=== PATIENT | female | born 1970 ===

== ENCOUNTER 2016-07-30 12:25 | Emergency (ER) | payer OTHER ==
[2016-07-30 12:37] VITALS: RESP 18; TEMP 98.3
--- NOTE | 2016-07-30 13:05 | ED PDOC ---
HPI: Hypertension/Hypotension Time Seen by Provider: 07/30/16 12:45 Chief Complaint (Nursing): High Blood Pressure Chief Complaint (Provider): High blood pressure History Per: Patient History/Exam Limitations: no limitations Onset/Duration Of Symptoms: Days (Today) Current Symptoms Are (Timing): Still Present Additional Complaint(s): Pt. went to the GI doctor for a follow up and refill on her meds. They found her pressure to be high so she was sent to the ED. Pt. states she has ran out of meds and was here for a refill. No meds for 2 days. Denies any chest pain, dyspnea, headaches, dizziness, palpitations, weakness, numbness, nausea. No symptoms and is feeling at baseline. Past Medical History Reviewed: Nursing Documentation, Vital Signs Vital Signs: Last Vital Signs Temp 98.3 F 07/30/16 12:32 Pulse 82 07/30/16 12:32 Resp 18 07/30/16 12:32 BP 184/98 H 07/30/16 12:32 Pulse Ox 98 07/30/16 12:32 - Medical History PMH: Anxiety, Asthma, Depression, Gastritis, HTN, Pancreatitis Denies: Alzheimer's Disease, Anemia, Arthritis, Atrial Fibrillation, Bipolar Disorder, Bronchitis, CAD, Cardia Arrhythmia, CHF, COPD, Crohn's Disease, Dementia, Diverticulitis, Emphysema, Fractures, Gall Bladder Disease, HIV, Hypercholesterolemia, Hyperthyroidism, Hypothyroidism, Kidney Stones, Migraine, Mitral Valve Prolapse, Multiple Sclerosis, Osteoporosis, Paranoia, Parkinson's Disease, Peripheral Edema, Pneumonia, Post Traumatic Stress Disorder, Pulmonary Embolism, Chronic Kidney Disease, Rheumatoid Arthritis, Schizophrenia, Seizures , Sickle Cell Disease, Sexually Transmitted Disease, Sleep Apnea, TIA Other PMH: Liver dz - Surgical History Surgical History: Endoscopy, Denies: Appendectomy, CABG, Carotid Endarterectomy, Cholecystectomy, Coronary Stent, Pacemaker, Tonsillectomy - Family History Family History: States: Unknown Family Hx - Social History Current smoker - smoking cessation education provided: No Alcohol: None Drugs: Denies - Immunization History Hx Tetanus Toxoid Vaccination: No Hx Influenza Vaccination: No Hx Pneumococcal Vaccination: No - Home Medications Home Medications: Ambulatory Orders Medication Instructions Recorded Furosemide [Lasix] 20 mg PO DAILY #14 tab 02/28/16 Spironolactone [Aldactone] 50 mg PO BID 04/05/16 Ferrous Sulfate [Feosol] 325 mg PO TID #90 tab 04/07/16 Furosemide [Lasix] 20 mg PO DAILY 5 Days 07/30/16 Propranolol [Inderal] 10 mg PO TID 5 Days 07/30/16 Spironolactone [Aldactone] 50 mg PO BID 5 Days 07/30/16 - Allergies Allergies/Adverse Reactions: Allergies Allergy/AdvReac Type Severity Reaction Status Date / Time No Known Allergies Allergy Verified 09/17/15 10:23 Review of Systems ROS Statement: Except As Marked, All Systems Reviewed And Found Negative Physical Exam - Reviewed Nursing Documentation Reviewed: Yes Vital Signs Reviewed: Yes - Physical Exam Appears: Positive for: Well, Non-toxic, No Acute Distress Head Exam: Positive for: ATRAUMATIC, NORMAL INSPECTION, NORMOCEPHALIC Skin: Positive for: Normal Color, Warm, DRY Eye Exam: Positive for: EOMI, Normal appearance, PERRL ENT: Positive for: Normal ENT Inspection Neck: Positive for: Normal, Painless ROM Cardiovascular/Chest: Positive for: Regular Rate, Rhythm Respiratory: Positive for: CNT, Normal Breath Sounds Gastrointestinal/Abdominal: Positive for: Normal Exam, Bowel Sounds, Soft. Negative for: Tenderness Back: Positive for: Normal Inspection. Negative for: L CVA Tenderness, R CVA Tenderness Extremity: Positive for: Normal ROM. Negative for: Tenderness, Pedal Edema Neurologic/Psych: Positive for: Alert, stock selector II-XII, Oriented. Negative for: Motor/Sensory Deficits - ECG O2 Sat by Pulse Oximetry: 98 Pulse Ox Interpretation: Normal - Progress ED Course And Treament: 1515: Stable. AAOx3. Pain free. Symptom free while in ED. Will rx meds for her refills and advised to fu with pcp. Spoke with Dr. Kay. Was sent to the ED for bp being high. No plan for admit. Ok with dc and fu. Disposition - Clinical Impression Clinical Impression: Hypertension - Patient ED Disposition Is Patient to be Admitted: No Counseled Patient/Family Regarding: Diagnosis, Need For Followup, Rx Given - Disposition Referrals: Faye Gray MD [Primary Care Provider] - 08/02/16 Disposition: Routine/Home Disposition Time: 15:18 Condition: STABLE Additional Instructions: See your doctor for all prescriptions for a longer duration. Return if not better in 3 days. Prescriptions: Furosemide [Lasix] 20 mg PO DAILY 5 Days Propranolol [Inderal] 10 mg PO TID 5 Days Spironolactone [Aldactone] 50 mg PO BID 5 Days Instructions: Hypertension (ED)
[2016-07-30 16:02] VITALS: BP 138/80; PULSE 65; O2SAT 100
--- NOTE | 2016-07-31 11:36 | CARD ---
APPROVED REPORT EKG Measurement Heart [id number] VT [id number] [id number] <Conclusion> Normal sinus rhythm Poor R wave progression (V2 to V3) Abnormal ECG
== END 2016-07-30 16:01 | disposition home or self-care (01) ==
LOC: H.ER 12:25
DX: I10 Essential (primary) hypertension (principal); F41.9 Anxiety disorder, unspecified; F32.9 Major depressive disorder, single episode, unspecified; J45.909 Unspecified asthma, uncomplicated; K85.90 Acute pancreatitis without necrosis or infection, unspecified

== ENCOUNTER 2016-11-01 15:26 | Inpatient (IN) | payer MEDICAID, SELFPAY ==
[2016-11-01] MEDS ORDERED: Alum-Mag Hydrox-Simethicone Susp (30 mL) PO ONE (16:32)
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
[2016-11-01 17:37] LABS: EOS % 0.4 % (0.0-4.0); HEMOGLOBIN 11.7 g/dL (12.0-16.0); LYMPH # 1.6 K/uL (1.0-4.3); LYMPH % 31.4 % (20.0-40.0); MEAN CORPUSCULAR HEMOGLOBIN 26.5 pg (27.0-31.0); MEAN CORPUSCULAR HGB CONC 32.8 g/dL (33.0-37.0); MONO # 0.5 K/uL (0.0-0.8); MONO % 9.1 % (0.0-10.0); NEUT % 58.1 % (50.0-75.0); NRBC % 0.1 % (0.0-0.0); RBC 4.42 Mil/uL (3.80-5.20); SQUAMOUS EPITHIAL 10 /hpf (0-5); URINE BACTERIA RARE (<OCC); URINE BILIRUBIN NEGATIVE (NEGATIVE); URINE BLOOD NEGATIVE (NEGATIVE); URINE CLARITY CLOUDY (Clear); URINE COLOR YELLOW (YELLOW); URINE GLUCOSE (UA) NEG (Normal); URINE LEUKOCYTE ESTERASE NEG Leu/uL (Negative); URINE NITRATE POSITIVE (NEGATIVE); URINE PROTEIN 30 mg/dL (NEGATIVE); URINE UROBILINOGEN 0.2-1.0 mg/dL (0.2-1.0); WHITE BLOOD COUNT 5.1 K/uL (4.8-10.8)
[2016-11-01 17:47] LABS: ALBUMIN 3.9 g/dL (3.5-5.0); ALT/SGPT 45 U/L (9-52); AST/SGOT 44 U/L (14-36); BLOOD UREA NITROGEN 6 mg/dl (7-17); CALCIUM 8.1 mg/dL (8.4-10.2); GFR AFRICAN-AMERICAN > 60; GFR NON-AFRICAN AMERICAN > 60; LIPASE 221 U/L (23-300)
[2016-11-01 17:50] LABS: BARBITURATES, UR NEGATIVE (NEGATIVE); BENZODIAZEPINES, UR NEGATIVE (NEGATIVE); OPIATES, UR NEGATIVE (NEGATIVE); PHENCYCLIDINE, UR NEGATIVE (NEGATIVE)
[2016-11-01] MEDS ORDERED: Alum-Mag Hydrox-Simethicone Susp (30 mL) ONE (18:18)
--- NOTE | 2016-11-01 18:30 | CT ---
PROCEDURE: CT HEAD WITHOUT CONTRAST. HISTORY: trauma; hx of subdural hematoma COMPARISON: Noncontrast head CT performed 04/06/16 TECHNIQUE: Axial computed tomography images were obtained through the head/brain without intravenous contrast. Radiation dose: Total exam DLP = 848.42 mGy-cm. This CT exam was performed using one or more of the following dose reduction techniques: Automated exposure control, adjustment of the mA and/or kV according to patient size, and/or use of iterative reconstruction technique. FINDINGS: HEMORRHAGE: No intracranial hemorrhage. BRAIN: No mass effect or edema. The godoy-white matter differentiation appears intact. Please note that MRI with diffusion imaging is more sensitive in the detection of acute ischemic event. VENTRICLES: No hydrocephalus. CALVARIUM: Unremarkable. PARANASAL SINUSES: Unremarkable as visualized. No significant inflammatory changes. MASTOID AIR CELLS: Unremarkable as visualized. No inflammatory changes. OTHER FINDINGS: None. IMPRESSION: No acute intracranial pathology identified.
--- NOTE | 2016-11-01 20:06 | US ---
EXAM: US Abdomen Complete CLINICAL HISTORY: 46 years old, female; Pain; Abdominal pain; Epigastric; Additional info: Epigastric pain TECHNIQUE: Real-time ultrasound of the abdomen (complete) with image documentation. EXAM DATE/TIME: 11/01/2016 6:52 PM COMPARISON: No relevant prior studies available. FINDINGS: Gallbladder: Contains multiple shadowing, layering gallstones. The gallbladder wall measures 3.4 mm in thickness (normal less than 3 mm). No evidence of pericholecystic fluid. Reportedly negative sonographic Allen's sign.Gallbladder does not appear significantly dilated. Common bile duct: Measures 6.3 mm in diameter (normal less than 6 mm). Liver: Has a nodular surface contour, suspicious for cirrhotic change. Parenchymal echogenicity appears heterogeneous, with no definite focal lesions seen. Normal flow seen in the main portal vein on color and Doppler imaging. Normal in size, measuring 14 cm in length. Pancreas: Poorly seen due to gas. Right kidney: Within normal limits in appearance. Measures 11.5 cm in length. No evidence of hydronephrosis. Left kidney: Within normal limits in appearance. Measures 10.9 cm in length. No evidence of hydronephrosis. Spleen: Mildly enlarged, measuring 14 cm in length. Aorta: Imaged portions appear unremarkable. IVC: Imaged portions appear unremarkable. IMPRESSION: Gallstones, associated with minimal gallbladder wall thickening, 3.4 mm. This wall thickening could be secondary to chronic cholecystitis or to underlying chronic liver disease, although early acute cholecystitis is difficult to exclude. No evidence of pericholecystic fluid or a positive sonographic Allen's sign. Common bile duct is slightly dilated, 6.3 mm, caused not identified. Recommend correlation with LFTs for laboratory evidence of biliary obstruction. Cirrhotic appearance of the liver. Mild splenomegaly. See above for remaining findings.
[2016-11-01] MEDS ORDERED: Tmp-Smz 800 mg-160 mg DS Tab PO STA (22:29)
[2016-11-02] MEDS ORDERED: DiphenhydrAMINE 50 mg/ml Inj IM PRN (01:03)
[2016-11-02] MEDS ORDERED: Alum-Mag Hydrox-Simethicone Susp (30 mL) PO PRN (01:03)
[2016-11-02] MEDS ORDERED: Magnesium Hydroxide Susp 30 ml UD PO PRN (01:03)
[2016-11-02 01:19] VITALS: O2SAT 99
[2016-11-02 07:56] LABS: HDL CHOLESTEROL 88 MG/DL (30-70)
[2016-11-02 08:08] LABS: LDL CHOLESTEROL 61 mg/dL (0-129)
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
[2016-11-02] MEDS: Multivitamin With Minerals Tab PO SCH (09:05)
--- NOTE | 2016-11-02 10:17 | RAD ---
HISTORY: clearance COMPARISON: 02/27/2016. FINDINGS: LUNGS: No active pulmonary disease. PLEURA: No significant pleural effusion identified, no pneumothorax apparent. CARDIOVASCULAR: Normal. OSSEOUS STRUCTURES: No significant abnormalities. VISUALIZED UPPER ABDOMEN: Normal. OTHER FINDINGS: None. IMPRESSION: No active disease. No significant interval change compared to the prior examination(s). No preliminary report provided by emergency department personnel.
[2016-11-02 10:58] LABS: SALICYLATE < 1.0 mg/dl
[2016-11-02 10:59] LABS: ACETAMINOPHEN < 10.0 ug/ml (10.0-30.0)
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
[2016-11-02] MEDS: Tmp-Smz 800 mg-160 mg DS Tab PO SCH (21:18)
[2016-11-03 08:21] LABS: HDL CHOLESTEROL 93 MG/DL (30-70)
[2016-11-03 08:24] LABS: ALT/SGPT 43 U/L (9-52); AST/SGOT 53 U/L (14-36); BLOOD UREA NITROGEN 11 mg/dl (7-17); CALCIUM 9.4 mg/dL (8.4-10.2); GFR AFRICAN-AMERICAN > 60; GFR NON-AFRICAN AMERICAN > 60
[2016-11-03 08:32] LABS: LDL CHOLESTEROL 74 mg/dL (0-129)
[2016-11-03] MEDS: Tmp-Smz 800 mg-160 mg DS Tab PO SCH ×2 (09:24→21:15)
[2016-11-03] MEDS: Multivitamin With Minerals Tab PO SCH (09:38)
--- NOTE | 2016-11-03 13:39 | PCM.PYCHPN ---
Psychiatric Progress Note - Psychiatric Progress Note Patient seen today, length of contact: in treatment team Patient Chief Complaint: i am ok Problems Identified/Issues Discussed: pt still minimizing her alcohol use. she states she is depressed. denies withdrawal symptoms. denies feeling sedated with meds. Medication Change: Yes (taper ativan) Medical Record Reviewed: Yes Mental Status Examination - Cognitive Function Orientation: Person, Place, Situation, Time Memory: Intact Attention: WNL Concentration: WNL Association: WNL Fund of Knowledge: [facility] Decription of patient's judgement and insights: fair - Mood Mood: Depressed, Anxious - Affect Affect: Broad - Speech Speech: Appropriate - Formal Thought Process Formal Thought Process: No Impairment - Suicidal Ideation Suicidal Ideation: No - Homicidal Ideation Homicidal Ideation: No Goal/Treatment Plan - Goal/Treatment Plan Need for Continued Stay: Remain at risks for inpatient hospitalization, Discharge may exacerbated symptoms Progress Toward Problem(s) and Goals/Treatment Plan: alcohol dependence major depression continue current treatment taper ativan dc tuesday/tuesday Estimated Date of D/C: 11/07/16
--- NOTE | 2016-11-03 18:25 | CARD ---
APPROVED REPORT EKG Measurement Heart [id number] <Conclusion> Sinus tachycardia Otherwise normal ECG
[2016-11-04] MEDS: Multivitamin With Minerals Tab PO SCH ×3 (08:50→08:56)
--- NOTE | 2016-11-04 11:17 | PCM.PYCHPN ---
Psychiatric Progress Note - Psychiatric Progress Note Patient seen today, length of contact: discussed with team Patient Chief Complaint: i am ok Problems Identified/Issues Discussed: pt denies withdrawal symptoms. remains depressed and isolative. she denies medication side effects. Medication Change: Yes (taper ativan) Medical Record Reviewed: Yes Mental Status Examination - Cognitive Function Orientation: Person, Place, Situation, Time Memory: Intact Attention: WNL Concentration: WNL Association: WNL Fund of Knowledge: WNL Decription of patient's judgement and insights: fair - Mood Mood: Depressed, Anxious - Affect Affect: Broad - Speech Speech: Appropriate - Formal Thought Process Formal Thought Process: No Impairment - Suicidal Ideation Suicidal Ideation: No - Homicidal Ideation Homicidal Ideation: No Goal/Treatment Plan - Goal/Treatment Plan Need for Continued Stay: Remain at risks for inpatient hospitalization, Discharge may exacerbated symptoms Progress Toward Problem(s) and Goals/Treatment Plan: alcohol dependence major depression continue current treatment taper ativan- lower to 0.5mg bid family medicine covering medical problems- pt with elevated bp/hr is wnl dc tuesday/tuesday Estimated Date of D/C: 11/07/16
--- NOTE | 2016-11-05 08:35 | CP.PCM.PN ---
Subjective - Date & Time of Evaluation Date of Evaluation: 11/05/16 Time of Evaluation: 08:15 - Subjective Subjective: Pt. seen at bedside with no overnight events and no complaints. Pt. is tolerating PO diet without nausea vomiting. Pt. denies abdominal pain. Pt. also denies any dysuria, fever, or chills. Objective - Vital Signs/Intake and Output Vital Signs (last 24 hours): Temp Pulse Resp BP Pulse Ox 97.9 F 85 18 135/61 99 11/04/16 16:46 11/04/16 17:25 11/04/16 16:46 11/04/16 17:25 11/02/16 02:39 - Medications Medications: Current Medications Acetaminophen (Tylenol 325mg Tab) 650 mg PO Q4 PRN PRN Reason: Pain, moderate (4-7) Al Hydrox/Mg Hydrox/Simethicone (Maalox Plus 30 Ml) 30 ml PO Q4 PRN PRN Reason: Dyspepsia Diphenhydramine HCl (Benadryl) 50 mg IM Q6 PRN PRN Reason: Extrapyramidal S/S Unable PO Diphenhydramine HCl (Benadryl) 50 mg PO Q6 PRN PRN Reason: Extrapyramidal Symptoms Ferrous Sulfate (Feosol) 325 mg PO TID [facility] Last Admin: 11/04/16 17:25 Dose: 325 mg Folic Acid (Folic Acid) 1 mg PO DAILY [facility] Last Admin: 11/04/16 13:38 Dose: 1 mg Furosemide (Lasix) 20 mg PO DAILY [facility] Last Admin: 11/04/16 08:56 Dose: 20 mg Haloperidol (Haldol) 5 mg PO Q4 PRN PRN Reason: Agitation Haloperidol Lactate (Haldol) 5 mg IM Q4 PRN PRN Reason: Agitation, Unable to Take PO Lorazepam (Ativan) 2 mg IM Q4 PRN PRN Reason: Anxiety/Agitation,Unable PO Lorazepam (Ativan) 1 mg PO Q4 PRN PRN Reason: Anxiety/Agitation Lorazepam (Ativan) 0.5 mg PO BID [facility] Last Admin: 11/04/16 17:25 Dose: 0.5 mg Magnesium Hydroxide (Milk Of Magnesia) 30 ml PO HS PRN PRN Reason: Constipation Mirtazapine (Remeron) 15 mg PO HS [facility] Last Admin: 11/04/16 21:15 Dose: 15 mg Multivitamins/Minerals (Therapeutic-M Tab) 1 tab PO DAILY [facility] Last Admin: 11/04/16 08:56 Dose: 1 tab Propranolol HCl (Inderal) 10 mg PO TID [facility] Last Admin: 11/04/16 17:25 Dose: 10 mg Sertraline HCl (Zoloft) 25 mg PO DAILY [facility] Last Admin: 11/04/16 08:50 Dose: 25 mg Spironolactone (Aldactone) 50 mg PO BID [facility] Last Admin: 11/04/16 08:54 Dose: 50 mg Thiamine HCl (Vitamin B1 Tab) 100 mg PO DAILY [facility] Last Admin: 11/04/16 08:56 Dose: 100 mg - Labs Labs: 11/03/16 07:00 - Constitutional Appears: Non-toxic, No Acute Distress - Eye Exam Eye Exam: Normal appearance. absent: Scleral icterus - Respiratory Exam Respiratory Exam: Clear to Ausculation Bilateral, NORMAL BREATHING PATTERN - Cardiovascular Exam Cardiovascular Exam: +S1, +S2 - GI/Abdominal Exam GI & Abdominal Exam: Soft. absent: Tenderness - Extremities Exam Extremities Exam: Normal Inspection. absent: Pedal Edema Additional comments: Negative CVA tenderness bilaterally - Neurological Exam Neurological Exam: Alert, Awake, Oriented x3 - Psychiatric Exam Psychiatric exam: Normal Affect, Normal Mood Assessment and Plan - Assessment and Plan (Free Text) Assessment: 46 y.o. female admitted for suicide ideation to psych unit Suicide ideation 1- Recommendations as per PSYCH ETOH abuse not in withdrawl CIWA score of 0 today 1- Recommendation as per PSYCH UTI- Urinalysis positive for Nitrates and Cloudy in appearance 1-Completed 3 days of Bactrim DS 2-Pt. 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
[2016-11-05] MEDS: Multivitamin With Minerals Tab PO SCH (09:26)
--- NOTE | 2016-11-05 12:19 | PCM.PYCHPN ---
Psychiatric Progress Note - Psychiatric Progress Note Patient seen today, length of contact: discussed with team Patient Chief Complaint: i am good Problems Identified/Issues Discussed: pt denies withdrawal symptoms. mood is improving. she denies medication side effects. Medication Change: Yes (cy moss) Medical Record Reviewed: Yes Mental Status Examination - Cognitive Function Orientation: Person, Place, Situation, Time Memory: Intact Attention: WNL Concentration: WNL Association: WNL Fund of Knowledge: WN Decription of patient's judgement and insights: fair - Mood Mood: Depressed, Anxious - Affect Affect: Broad - Speech Speech: Appropriate - Formal Thought Process Formal Thought Process: No Impairment - Suicidal Ideation Suicidal Ideation: No - Homicidal Ideation Homicidal Ideation: No Goal/Treatment Plan - Goal/Treatment Plan Need for Continued Stay: Remain at risks for inpatient hospitalization, Discharge may exacerbated symptoms Progress Toward Problem(s) and Goals/Treatment Plan: alcohol dependence major depression continue current treatment [facility] covering medical problems- cy tuesday Estimated Date of D/C: 11/07/16
[2016-11-06 09:13] VITALS: RESP 18
[2016-11-06] MEDS: Multivitamin With Minerals Tab PO SCH (10:17)
--- NOTE | 2016-11-06 10:21 | PCM.PYCHPN ---
Psychiatric Progress Note - Psychiatric Progress Note Patient seen today, length of contact: Patient evaluated, case discussed with team, chart reviewed Patient Chief Complaint: "I'm feeling better." Problems Identified/Issues Discussed: Patient reports that her mood is improving. She denies current ideation to harm self/others. No ETOH w/drawal symptoms. She reports improved sleep/ appetite. She wants to leave the hospital and is going to submit a 48 hour letter requesting discharge. Medication Change: Yes (Increase Zoloft to 50 mg PO Daily) Medical Record Reviewed: Yes Mental Status Examination - Cognitive Function Orientation: Person, Place, Situation, Time Memory: Intact Attention: WNL Concentration: WNL Association: WNL Fund of Knowledge: [facility] Decription of patient's judgement and insights: Poor I/ Fair J - Mood Mood: Depressed, Anxious - Affect Affect: Broad - Speech Speech: Appropriate - Formal Thought Process Formal Thought Process: No Impairment Psychotic Thoughts and Behaviors: NO AH/VH/Paranoia/delusions - Suicidal Ideation Suicidal Ideation: No - Homicidal Ideation Homicidal Ideation: No Goal/Treatment Plan - Goal/Treatment Plan Need for Continued Stay: Remain at risks for inpatient hospitalization, Discharge may exacerbated symptoms Progress Toward Problem(s) and Goals/Treatment Plan: Alcohol Use Disorder, Major Depressive Disorder -Increase Zoloft to 50 mg PO Daily -Continue Remeron 15 mg PO HS -Individual and group therapy -Patient submitted 48 hr letter; she will be discharged tomorrow if she continues to improve clinically. Estimated Date of D/C: 11/07/16
[2016-11-07 08:39] VITALS: BP 141/82; PULSE 60
[2016-11-07] MEDS: Multivitamin With Minerals Tab PO SCH (08:40)
[2016-11-07 08:58] VITALS: TEMP 97.9
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
== END 2016-11-07 10:45 | disposition home or self-care (01) | DRG 885 ==
LOC: H.ER 15:26 → H.EROBSV 16:31 → OBSVTOIN 23:58 → H.ERHOLD 23:58 → H.PSYCH 11-02 01:52
PROVIDERS: ADMIT Psychiatry & Neurology Psychiatry; ATTEND Psychiatry & Neurology Psychiatry
PROC: GZHZZZZ Group Psychotherapy (ICD-10-PCS; principal; 2016-11-02)
PROC: GZ51ZZZ Individual Psychotherapy, Behavioral (ICD-10-PCS; 2016-11-02)
DX: F33.1 Major depressive disorder, recurrent, moderate (principal); R45.851 Suicidal ideations; K74.60 Unspecified cirrhosis of liver; I10 Essential (primary) hypertension; N39.0 Urinary tract infection, site not specified; B19.20 Unspecified viral hepatitis C without hepatic coma; D63.8 Anemia in other chronic diseases classified elsewhere; F10.20 Alcohol dependence, uncomplicated; J45.909 Unspecified asthma, uncomplicated; Z90.710 Acquired absence of both cervix and uterus; F41.9 Anxiety disorder, unspecified; K29.70 Gastritis, unspecified, without bleeding; R63.4 Abnormal weight loss; Y90.8 Blood alcohol level of 240 mg/100 ml or more; R10.13 Epigastric pain

== ENCOUNTER 2016-12-23 17:39 | Emergency (ER) | payer MEDICAID, SELFPAY ==
[2016-12-23 17:51] VITALS: BP 177/82; PULSE 63; RESP 20; TEMP 98.6; O2SAT 99
[2016-12-23] MEDS ORDERED: Alum-Mag Hydrox-Simethicone Susp (30 mL) PO STA (18:07)
--- NOTE | 2016-12-23 18:09 | ED PDOC ---
HPI: Abdomen Time Seen by Provider: 12/23/16 17:45 Chief Complaint (Nursing): Abdominal Pain Chief Complaint (Provider): Abdominal Pain History Per: Patient History/Exam Limitations: no limitations Onset/Duration Of Symptoms: Hrs (x4) Current Symptoms Are (Timing): Still Present Location Of Pain/Discomfort: Epigastric Additional Complaint(s): Agata Storm is a 46 year old female with a history of cirrhosis and hypertension that presents to the ED with a chief complaint of epigastric pain that radiates to both the right and left sides of her stomach that she has been experiencing for the past four hours. Patient reports that this is the third time she has experienced such symptoms, and that she has seen doctors at her clinic in [place] in the past. Of Note: When patient was asked about whether or not she has hepatitis, patient states that she was tested for it twice, and that one time she tested positive and the other time negative. Past Medical History Reviewed: Historical Data, Nursing Documentation, Vital Signs Vital Signs: Last Vital Signs Temp 98.6 F 12/23/16 17:47 Pulse 63 12/23/16 17:47 Resp 20 12/23/16 17:47 BP 177/82 H 12/23/16 17:47 Pulse Ox 99 12/23/16 18:21 - Medical History PMH: Anxiety, Asthma, Depression, Gastritis, HTN, Pancreatitis Denies: Alzheimer's Disease, Anemia, Arthritis, Atrial Fibrillation, Bipolar Disorder, Bronchitis, CAD, Cardia Arrhythmia, CHF, COPD, Crohn's Disease, Dementia, Diabetes, Diverticulitis, Emphysema, Fractures, Gall Bladder Disease, Hepatitis, HIV, Hypercholesterolemia, Hyperthyroidism, Hypothyroidism, Kidney Stones, Migraine, Mitral Valve Prolapse, Multiple Sclerosis, Osteoporosis, Paranoia, Parkinson's Disease, Peripheral Edema, Pneumonia, Post Traumatic Stress Disorder, Pulmonary Embolism, Chronic Kidney Disease, Rheumatoid Arthritis, Schizophrenia, Seizures, Sickle Cell Disease, Sexually Transmitted Disease, Sleep Apnea, TIA Other PMH: cirrhosis - Surgical History Surgical History: Endoscopy, Denies: Appendectomy, CABG, Carotid Endarterectomy, Cholecystectomy, Coronary Stent, Pacemaker, Tonsillectomy - Family History Family History: States: Unknown Family Hx - Immunization History Hx Tetanus Toxoid Vaccination: No Hx Influenza Vaccination: No Hx Pneumococcal Vaccination: No - Home Medications Home Medications: Ambulatory Orders Medication Instructions Recorded Ferrous Sulfate [Feosol] 325 mg PO TID #90 tab 11/07/16 Folic Acid 1 mg PO DAILY #30 tab 11/07/16 Furosemide [Lasix] 20 mg PO DAILY #30 tab 11/07/16 Mirtazapine [Remeron] 15 mg PO HS #30 tab 11/07/16 Multimineral/Multivitamin 1 tab PO DAILY tab 11/07/16 [Therapeutic-M Tab] Propranolol [Inderal] 10 mg PO TID #90 tab 11/07/16 Sertraline [Zoloft] 50 mg PO DAILY #30 tab 11/07/16 Spironolactone [Aldactone] 50 mg PO BID #60 tab 11/07/16 Thiamine [Vitamin B1 Tab] 100 mg PO DAILY #30 tab 11/07/16 Famotidine [Pepcid] 20 mg PO BID #28 tab 12/23/16 - Allergies Allergies/Adverse Reactions: Allergies Allergy/AdvReac Type Severity Reaction Status Date / Time No Known Allergies Allergy Verified 09/17/15 10:23 Review of Systems Gastrointestinal: Positive for: Abdominal Pain (epigastric pain) Physical Exam - Reviewed Nursing Documentation Reviewed: Yes Vital Signs Reviewed: Yes - Physical Exam Appears: Positive for: Non-toxic, No Acute Distress Head Exam: Positive for: ATRAUMATIC, NORMOCEPHALIC Skin: Positive for: Normal Color, Warm Eye Exam: Positive for: Normal appearance, EOMI, PERRL Cardiovascular/Chest: Positive for: Regular Rate, Rhythm. Negative for: Murmur Respiratory: Positive for: Normal Breath Sounds. Negative for: Wheezing Gastrointestinal/Abdominal: Positive for: Tenderness (epigastric TTP). Negative for: Normal Exam Neurologic/Psych: Positive for: Alert, Oriented. Negative for: Motor/Sensory Deficits - Laboratory Results Result Diagrams: 12/23/16 18:20 12/23/16 18:20 - ECG O2 Sat by Pulse Oximetry: 99 (RA) Pulse Ox Interpretation: Normal Medical Decision Making Medical Decision Making: Impression: Epigastric Pain Plan: * CMP * CBC * Urine * Maalox Plus 30 mL PO * Pepcid 20 mg PO * Lidocaine 2% 15 mL PO * Reevaluation Scribe Attestation: Documented by Elda Luis, acting as a scribe for Shaylee Bryson PA-C. Provider Scribe Attestation: All medical record entries made by the Scribe were at my direction and personally dictated by me. I have reviewed the chart and agree that the record accurately reflects my personal performance of the history, physical exam, medical decision making, and the department course for this patient. I have also personally directed, reviewed, and agree with the discharge instructions and disposition. Disposition - Clinical Impression Clinical Impression: Abdominal pain - Patient ED Disposition Is Patient to be Admitted: No Counseled Patient/Family Regarding: Diagnosis, Need For Followup, Rx Given - Disposition Referrals: [facility] [Outside] Disposition: Routine/Home Disposition Time: 20:53 Condition: GOOD Prescriptions: Famotidine [Pepcid] 20 mg PO BID #28 tab Instructions: Abdominal Pain (ED) Forms: [employer] ([place])
[2016-12-23 18:32] LABS: BASO % 0.6 % (0.0-2.0); EOS # 0.1 K/uL (0.0-0.7); EOS % 1.3 % (0.0-4.0); HEMATOCRIT 36.8 % (34.0-47.0); LYMPH % 12.8 % (20.0-40.0); MEAN CELL VOLUME 87.3 fl (81.0-99.0); MEAN CORPUSCULAR HEMOGLOBIN 28.1 pg (27.0-31.0); MEAN CORPUSCULAR HGB CONC 32.2 g/dL (33.0-37.0); MEAN PLATELET VOLUME 10.2 fl (7.2-11.7); MONO # 0.9 K/uL (0.0-0.8); MONO % 11.5 % (0.0-10.0); NEUT # 5.7 K/uL (1.8-7.0); NEUT % 73.8 % (50.0-75.0); RED CELL DISTRIBUTION WIDTH 21.9 % (11.5-14.5); WHITE BLOOD COUNT 7.7 K/uL (4.8-10.8)
[2016-12-23 18:39] LABS: ALKALINE PHOSPHATASE 119 U/L (38-126); ALT/SGPT 51 U/L (9-52); AST/SGOT 92 U/L (14-36); BILIRUBIN,TOTAL 2.7 mg/dl (0.2-1.3); BLOOD UREA NITROGEN 14 mg/dl (7-17); CALCIUM 9.3 mg/dL (8.4-10.2); CARBON DIOXIDE 20 mmol/L (22-30); CHLORIDE 109 mmol/L (98-107); GFR AFRICAN-AMERICAN > 60; GLUCOSE,RANDOM 120 mg/dL (65-105); LIPASE 264 U/L (23-300); POTASSIUM 3.8 MMOL/L (3.6-5.0); SODIUM 139 mmol/l (132-148); TOTAL PROTEIN 7.7 G/DL (6.3-8.2)
== END 2016-12-23 21:06 | disposition home or self-care (01) ==
LOC: H.ER 17:39
DX: R10.13 Epigastric pain (principal); K74.69 Other cirrhosis of liver; I10 Essential (primary) hypertension
CPT/HCPCS: 80053; 81025; 83690; 85025; 96374; 99282; J2270

== ENCOUNTER 2017-07-18 17:05 | Inpatient (IN) | payer MEDICAID, OTHER ==
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
[2017-07-18 18:34] LABS: HEMOGLOBIN 13.5 g/dL (12.0-16.0); MEAN CELL VOLUME 89.7 fl (81.0-99.0); MEAN CORPUSCULAR HEMOGLOBIN 29.5 pg (27.0-31.0); MEAN CORPUSCULAR HGB CONC 32.8 g/dL (33.0-37.0); RBC 4.59 Mil/uL (3.80-5.20); RED CELL DISTRIBUTION WIDTH 19.9 % (11.5-14.5); WHITE BLOOD COUNT 6.1 K/uL (4.8-10.8)
[2017-07-18 19:09] LABS: ALBUMIN 4.4 g/dL (3.5-5.0); ALT/SGPT 70 U/L (9-52); AST/SGOT 148 U/L (14-36); BLOOD UREA NITROGEN 8 mg/dl (7-17); CALCIUM 8.6 mg/dL (8.4-10.2); GFR AFRICAN-AMERICAN > 60; GFR NON-AFRICAN AMERICAN > 60
[2017-07-18 19:35] LABS: ALB/GLOB RATIO 0.9 (1.0-2.1)
[2017-07-18 20:18] LABS: BARBITURATES, UR NEGATIVE (NEGATIVE); BENZODIAZEPINES, UR NEGATIVE (NEGATIVE); OPIATES, UR NEGATIVE (NEGATIVE); PHENCYCLIDINE, UR NEGATIVE (NEGATIVE)
[2017-07-18 21:01] LABS: SQUAMOUS EPITHIAL < 1 /hpf (0-5); URINE BACTERIA RARE (<OCC); URINE BILIRUBIN NEGATIVE (NEGATIVE); URINE BLOOD NEGATIVE (NEGATIVE); URINE CLARITY SLIGHTY-CLOUDY (Clear); URINE COLOR YELLOW (YELLOW); URINE GLUCOSE (UA) NEG (Normal); URINE LEUKOCYTE ESTERASE NEG Leu/uL (Negative); URINE PROTEIN 30 mg/dL (NEGATIVE); URINE UROBILINOGEN 0.2-1.0 mg/dL (0.2-1.0)
--- NOTE | 2017-07-19 04:28 | ED PDOC ---
- Laboratory Results Result Diagrams: 07/18/17 18:25 07/18/17 18:25 - ECG ECG: Positive for: Viewed By Me (reviewed by ED attending) ECG Rhythm: Positive for: Sinus Rhythm O2 Sat by Pulse Oximetry: 100 - Radiology X-Ray: Viewed By Me X-Ray Interpretation: No Acute Disease - Progress ED Course And Treament: case endorsed to information writer from [facility] pending sobriety, crisis eval Patient evaluated by tin recovery worker; to be admitted to [facility] as per Dr. Dhaliwal. ekg, chest xray ordered Medical Decision Making Medical Decision Making: Patient medically stable for psych admission Disposition - Clinical Impression Clinical Impression: Depression, Alcoholism - POA Present On Arrival: None - Disposition Disposition: Admitted as In-Patient Disposition Time: 04:30 Condition: FAIR
[2017-07-19 05:31] VITALS: O2SAT 100
[2017-07-19] MEDS ORDERED: Magnesium Hydroxide Susp 30 ml UD PO PRN (06:04)
[2017-07-19] MEDS ORDERED: Alum-Mag Hydrox-Simethicone Susp (30 mL) PO PRN (06:04)
[2017-07-19] MEDS ORDERED: DiphenhydrAMINE 50 mg/ml Inj IM PRN (06:04)
--- NOTE | 2017-07-19 06:05 | PCM.BM ---
<KrupaCathy Krishnan - Last Filed: 07/19/17 06:02> Treatment Plan Problems - Problems identified on initial assessmt Hopelessness/Helplessness Date Initiated: 07/19/17 Time Initiated: 05:45 Assessment reference: NA Status: Active Treatment assets and liabiliti Patient Assests: adapts well, cooperative Patient Liabilities: relationship conflicts - Milieu Protocol Maintain good personal hygiene: daily Encourage regular showers, daily Remind patient to perform daily oral care, daily Assist patient to perform ADL's Maintain personal safety: every shift Educate patient to report safety concerns to staff, every shift Monitor environment for contraband/sharps Medication safety: Monitor for expected outcome, potential side effects: every shift, Assess barriers to learning: every shift, Assess readiness for medication education: every shift <Silvia Casper - Last Filed: 07/20/17 16:33> Treatment assets and liabiliti Patient Assests: adapts well, cooperative, resourceful, self-reliant, ADL independent, negotiates basic needs, good past tx response, cognitively intact Patient Liabilities: financial problems, relationship conflicts, substance abuse Family Contact Family involvement: Family/SO is involved Family contact: Family has been contacted by patient, Telephone contact initiated by staff Family contact name: Vivi) ([phone]) Family contacted how many times per week?: 2 Family contact comment: Water Pollution Control Inspector recieved consent to contact patients boyfriend and will make call on 07/21 to discuss pts progress on 3NP and collect further collateral information. - Goals for Treatment Patient's family/SO goals for treatment: Patient to continue stabilization on 3NP through medication management and group/supportive therapy. Patient to be encouraged to attend groups regularly to promote self-awareness, sobriety, compliance and improve insight, coping skills and self-esteem. Patient to be provided with referral for appropriate level of aftercare to reduce risk of future hospitalizations and ensure safety in the community. Discharge/Continuing Care - Education Needs Education Needs: Patient Medication, Patient Diagnosis/Disease Process, Patient Coping Skills, Patient Community resources, Patient Aftercare Safety Plan - Discharge Discharge Criteria: Tolerates medication w/o severe side effects, Free of Suicidal thoughts, Free of paranoid thoughts, Normal sleep pattern, Ability to care for self, No longer exhibiting s/s of withdrawal, Reduction of target symptoms Discharge to:: Home, With Family, Other (OPS/STEFANY) - Treatment Team Participation Patient/Family/SO Statement: 07/20/17 16:33 Patient attended tx team this morning and was able to participate in discussion regarding progress on 3NP and tx goals. Pt. cooperative and pleasant through- out assessment. Patient AOX4 with constricted affect and fair eye contact. Affect is brighter than upon admission. Patient presents as fairly tidy with fair ADLs. Speech: somewhat pressured but to a lesser degree than upon admission. Thoughts are clear and connected. Patient presents as depressed but to a much lesser degree than upon admission. Focus remains limited. Insight/ judgment fair. Coping skills impaired. Patient somewhat minimizing ETOH abuse. Patient socially withdrawn on 3NP but is able to socialize appropriately with peers with minimal prompts. Patient denies SI/HI and is able to contract for safety on 3NP. Patient to continue stabilization on 3NP through medication management and group/supportive therapy. Patient agreeable to referrals to [facility] and [facility]. Medication management and importance of compliance with aftercare discussed at length. Discussed with Family/SO: No Was Patient/Family/SO present at Treatment Team Meeting: Yes <Janine Mccoy - Last Filed: 07/22/17 09:52> - Diagnosis (1) Depression Status: Acute Interventions: psychotherapy pharmacotherapy 07/22/17 09:51
--- NOTE | 2017-07-19 07:39 | CARD ---
APPROVED REPORT EKG Measurement Heart [id number] <Conclusion> Normal sinus rhythm Normal ECG
[2017-07-19 08:15] LABS: HDL CHOLESTEROL 76 MG/DL (30-70)
[2017-07-19 08:26] LABS: LDL CHOLESTEROL 99 mg/dL (0-129)
--- NOTE | 2017-07-19 12:07 | RAD ---
HISTORY: admit COMPARISON: 11/02/2016 FINDINGS: LUNGS: No infiltrate. Stable 5 mm nodule at left base, likely old granuloma. Unchanged since 02/27/2016. PLEURA: No significant pleural effusion identified, no pneumothorax apparent. CARDIOVASCULAR: Normal. OSSEOUS STRUCTURES: No significant abnormalities. VISUALIZED UPPER ABDOMEN: Normal. OTHER FINDINGS: None. IMPRESSION: No active disease.
--- NOTE | 2017-07-19 12:15 | CP.PCM.CON ---
History of Present Illness - History of Present Illness History of Present Illness: CC/HPI: Pt. seen in the psych [facility] admitted for Depression and ETOH detox. Pt. at this time reports nausea and vomiting. Pt. reports drinking "a lot" prior to admission to Psych [facility]. Pt. denies any suicide or homocide ideation at this time. Pt. also reports vomiting was non-billious and non-bloody. Pt. denies any abdominal pain, melena, hematochezia, or hemoptysis, Pt. also denies any cough, fever or chills. ROS: PT. denies any chest pain, dyspnea, abdominal pain, headache, lightheadedness dizziness, flnak pain, hematuria, or dysuria PMHx. HTN, Hep C, Liver cirrhosis, ETOH abuse, and Depression PSHX: Hysterecomy, OBGYN Hx: Post-menopause- Hystercomy 2002 Social: ETOH abuse Allergies: NKDA Home Meds: Reviewed PMD: DR. Ponce - [facility] E.R. Course reviewed including labs and imaging. Review of Systems - Review of Systems Review of Systems: See HPI Past Patient History - Infectious Disease Hx of Infectious Diseases: None - Past Medical History & Family History Past Medical History?: Yes - Past Social History Alcohol: None Drugs: Denies - CARDIAC Hx Hypertension: Yes - PULMONARY Hx Asthma: Yes Hx Bronchitis: No Hx Chronic Obstructive Pulmonary Disease (COPD): No Hx Emphysema: No Hx Pneumonia: No Hx Pulmonary Embolism: No Hx Sleep Apnea: No - NEUROLOGICAL Hx Seizures: No - HEENT Hx HEENT Problems: No - RENAL Hx Chronic Kidney Disease: No - ENDOCRINE/METABOLIC Hx Hyperthyroidism: No Hx Hypothyroidism: No - HEMATOLOGICAL/ONCOLOGICAL Hx Human Immunodeficiency Virus (HIV): No - INTEGUMENTARY Hx Dermatological Problems: No - MUSCULOSKELETAL/RHEUMATOLOGICAL Hx Arthritis: No Hx Fractures: No Hx Osteoporosis: No Hx Rheumatoid Arthritis: No - GASTROINTESTINAL Hx Crohn's Disease: No Hx Diverticulitis: No Hx Gall Bladder Disease: No Hx Gastritis: Yes Hx Pancreatitis: Yes - GENITOURINARY/GYNECOLOGICAL Hx Sexually Transmitted Disorders: No - PSYCHIATRIC Hx Substance Use: No - SURGICAL HISTORY Hx Appendectomy: No Hx Carotid Endarterectomy: No Hx Cholecystectomy: No Hx Coronary Artery Bypass Graft: No Hx Coronary Stent: No Hx Tonsillectomy: No - ANESTHESIA Hx Anesthesia: Yes Hx Anesthesia Reactions: No Hx Malignant Hyperthermia: No Meds Allergies/Adverse Reactions: Allergies Allergy/AdvReac Type Severity Reaction Status Date / Time No Known Allergies Allergy Verified 07/18/17 17:14 - Medications Medications: Current Medications Acetaminophen (Tylenol 325mg Tab) 650 mg PO Q4 PRN PRN Reason: Pain, moderate (4-7) Al Hydrox/Mg Hydrox/Simethicone (Maalox Plus 30 Ml) 30 ml PO Q4 PRN PRN Reason: Dyspepsia Amlodipine Besylate (Norvasc) 5 mg PO DAILY [facility] Chlordiazepoxide (Librium) 50 mg PO Q6 [facility] Diphenhydramine HCl (Benadryl) 50 mg IM Q6 PRN PRN Reason: Extrapyramidal S/S Unable PO Diphenhydramine HCl (Benadryl) 50 mg PO Q6 PRN PRN Reason: Extrapyramidal Symptoms Diphenhydramine HCl (Benadryl) 50 mg PO HS PRN PRN Reason: Sleep Furosemide (Lasix) 10 mg PO DAILY [facility] Haloperidol (Haldol) 5 mg PO Q4 PRN PRN Reason: Agitation Haloperidol Lactate (Haldol) 5 mg IM Q4 PRN PRN Reason: Agitation, Unable to Take PO Lorazepam (Ativan) 2 mg IM Q4 PRN PRN Reason: Anxiety/Agitation,Unable PO Last Admin: 07/19/17 11:27 Dose: 2 mg Lorazepam (Ativan) 2 mg PO Q4 PRN PRN Reason: Anxiety/Agitation Magnesium Hydroxide (Milk Of Magnesia) 30 ml PO HS PRN PRN Reason: Constipation Ondansetron HCl (Zofran Odt) 4 mg PO Q8H PRN PRN Reason: Nausea/Vomiting Propranolol HCl (Inderal) 10 mg PO TID [facility] Vitamin B Complex/Vit C/Folic Acid (Nephro-Kenneth) 1 tab PO DAILY [facility] Physical Exam - Constitutional Appears: Non-toxic - Head Exam Additional comments: Diaphoresis, flushed appearrance - Eye Exam Eye Exam: PERRL. absent: Scleral icterus - ENT Exam ENT Exam: Mucous Membranes Moist - Neck Exam Neck exam: Positive for: Full Rom - Respiratory Exam Respiratory Exam: Clear to Auscultation Bilateral, NORMAL BREATHING PATTERN - Cardiovascular Exam Cardiovascular Exam: Tachycardia, +S1, +S2 - GI/Abdominal Exam GI & Abdominal Exam: Soft. absent: Tenderness - Extremities Exam Extremities exam: Positive for: normal capillary refill, normal inspection. Negative for: calf tenderness, pedal edema - Neurological Exam Neurological exam: Alert, Oriented x3 Additional comments: Asterexis on outstretched hands gait normal - Psychiatric Exam Psychiatric exam: Anxious Additional comments: CIWA score 10 Results - Vital Signs Recent Vital Signs: Last Vital Signs Temp 97.9 F 07/19/17 09:00 Pulse 108 H 07/19/17 09:00 Resp 20 07/19/17 09:00 BP 160/107 H 07/19/17 09:00 Pulse Ox 100 07/19/17 05:31 - Labs Result Diagrams: 07/20/17 05:30 07/20/17 05:30 Labs: Laboratory Results - last 24 hr 07/18/17 07/18/17 07/18/17 18:25 18:25 19:25 WBC 6.1 RBC 4.59 Hgb 13.5 Hct 41.1 MCV 89.7 D MCH 29.5 MCHC 32.8 L RDW 19.9 H Plt Count 93 L Sodium 150 H Potassium 3.7 Chloride 105 Carbon Dioxide 18 L Anion Gap 31 H BUN 8 Creatinine 0.5 L Est GFR ( Amer) > 60 Est GFR (Non-Af Amer) > 60 POC Glucose (mg/dL) Random Glucose 97 Calcium 8.6 Total Bilirubin 3.2 H AST 148 H D ALT 70 H D Alkaline Phosphatase 115 Total Protein 9.5 H Albumin 4.4 Globulin 5.1 H Albumin/Globulin Ratio 0.9 L Triglycerides Cholesterol LDL Cholesterol Direct HDL Cholesterol Urine Color Urine Clarity Urine pH Ur Specific [place] Urine Protein Urine Glucose (UA) Urine Ketones Urine Blood Urine Nitrate Urine Bilirubin Urine Urobilinogen Ur Leukocyte Esterase Urine RBC (Auto) Urine Microscopic WBC Ur Squamous Epith Cells Urine Bacteria Urine Opiates Screen Negative Urine Methadone Screen Negative Ur Barbiturates Screen Negative Ur Phencyclidine Scrn Negative Ur Amphetamines Screen Negative U Benzodiazepines Scrn Negative U Oth Cocaine Metabols Negative U Cannabinoids Screen Negative Alcohol, Quantitative 419 H* 07/18/17 07/18/17 07/19/17 20:32 20:45 07:49 WBC RBC Hgb Hct MCV MCH MCHC RDW Plt Count Sodium Potassium Chloride Carbon Dioxide Anion Gap BUN Creatinine Est GFR ( Amer) Est GFR (Non-Af Amer) POC Glucose (mg/dL) 90 Random Glucose Calcium Total Bilirubin AST ALT Alkaline Phosphatase Total Protein Albumin Globulin Albumin/Globulin Ratio Triglycerides 92 D Cholesterol 191 LDL Cholesterol Direct 99 HDL Cholesterol 76 H Urine Color Yellow Urine Clarity Slighty-cloudy Urine pH 6.0 Ur Specific [place] 1.009 Urine Protein 30 Urine Glucose (UA) Neg Urine Ketones Trace Urine Blood Negative Urine Nitrate Negative Urine Bilirubin Negative Urine Urobilinogen 0.2-1.0 Ur Leukocyte Esterase Neg Urine RBC (Auto) < 1 Urine Microscopic WBC 2 Ur Squamous Epith Cells < 1 Urine Bacteria Rare Urine Opiates Screen Urine Methadone Screen Ur Barbiturates Screen Ur Phencyclidine Scrn Ur Amphetamines Screen U Benzodiazepines Scrn U Oth Cocaine Metabols U Cannabinoids Screen Alcohol, Quantitative Assessment & Plan - Assessment and Plan (Free Text) Assessment: 47 y.o. female with hx of ETOH abuse and liver cirrhosis admitted for depression in Psych in acute ETOH intoxication ETOH intoxication with CIWA score of 10 at risk for withdrawl 1- ETOH level more than 400 on admission 2- Start Librium 50mg po Q6 hours will titrate down 3- Ativan 2mg I.M. now 4- Zofran ODT 4mg now and continue PRN 5- Repeat a.m. labs including B12 and Folate, Mag, Phos, CBC, CMP 6- Mutivitamin 30ml liquid solution now HTN with Tachycardia 1- Systolic 200 and Diastolic >100 2- Norvasc 10mg now 3- Start Home Meds Propranolol 10 mg PO TID 4- Start Home Meds Lasix 20mg PO daily 5- Start Home Meds Norvasc 5mg PO daily 6- Repeat BP in 2 hours 7- Ativan PRN for [place] DVT prophylaxis 1- Encourage ambulation Diet- Regular 1- Regular Code Status 1- Full
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
[2017-07-19] MEDS ORDERED: Petrolatum UD PAK TOP PRN (21:14)
[2017-07-19] MEDS ORDERED: Multi Vitamins 15 mL UD Oral Solution PO ONE (21:30)
[2017-07-20 06:30] LABS: HEMOGLOBIN 12.3 g/dL (12.0-16.0); MEAN CELL VOLUME 89.7 fl (81.0-99.0); MEAN CORPUSCULAR HEMOGLOBIN 30.5 pg (27.0-31.0); RBC 4.04 Mil/uL (3.80-5.20); RED CELL DISTRIBUTION WIDTH 19.3 % (11.5-14.5); WHITE BLOOD COUNT 3.8 K/uL (4.8-10.8)
[2017-07-20 06:46] LABS: ALB/GLOB RATIO 0.8 (1.0-2.1); ALBUMIN 3.8 g/dL (3.5-5.0); ALT/SGPT 65 U/L (9-52); AST/SGOT 138 U/L (14-36); BLOOD UREA NITROGEN 11 mg/dl (7-17); CALCIUM 8.8 mg/dL (8.4-10.2); GFR AFRICAN-AMERICAN > 60; GFR NON-AFRICAN AMERICAN > 60
[2017-07-20 08:40] LABS: T4 5.1 ug/dl (5.5-11.0)
[2017-07-20] MEDS: Multivitamin Vitamin B Complex (Nephro-Vite) Tab PO SCH (09:07)
[2017-07-20] MEDS: Furosemide 40 mg/5 mL Oral Soln UD PO SCH (09:08)
--- NOTE | 2017-07-20 15:19 | PCM.PYCHPN ---
Psychiatric Progress Note - Psychiatric Progress Note Patient seen today, length of contact: pt evaluated discussed with team chrat reviewed Patient Chief Complaint: I am overwhelmed with my living situation Problems Identified/Issues Discussed: pt evaluated with treatment team, reported feeling depressed and overwhelmed as she lost her job not working for last two months, also she had to have three children coming to live with her, pt minimizing her alcohol use and showing limited insight' continues to feel depressed and anxious denied any current perceptual disturbances, denied suicidal or homicidal ideations Medical Problems: AT LEAST THREE INPATIENT ADMISSIONS FOR DEPRESSION AND ALCOHOL USE DSM 5 Symptoms Update: major depression alcohol use disorder i Medication Change: Yes (increase lexapro) Medical Record Reviewed: Yes Mental Status Examination - Cognitive Function Orientation: Person, Place Attention: WNL Concentration: WNL Association: WNL Fund of Knowledge: WNL Decription of patient's judgement and insights: fair insight and judgment - Mood Mood: Depressed, Anxious - Affect Affect: Constricted, Depressed - Speech Speech: Soft - Formal Thought Process Formal Thought Process: Circumstantial Psychotic Thoughts and Behaviors: denied current perceptual disturbances - Suicidal Ideation Suicidal Ideation: No - Homicidal Ideation Homicidal Ideation: No Goal/Treatment Plan - Goal/Treatment Plan Need for Continued Stay: Severe depression anxiety, Discharge may exacerbated symptoms Progress Toward Problem(s) and Goals/Treatment Plan: discontinue librium start ativan 1mg tid and downtitrate gradually follow up on BP INCREASE lexapro 10mg daily with plan to uptitrate trazodone 100mg qhs motivational and supportive therapy
[2017-07-20 20:37] VITALS: RESP 18
[2017-07-21] MEDS: Multivitamin Vitamin B Complex (Nephro-Vite) Tab PO SCH (10:10)
[2017-07-21] MEDS: Furosemide 40 mg/5 mL Oral Soln UD PO SCH (10:11)
--- NOTE | 2017-07-21 19:07 | PCM.PYCHPN ---
Psychiatric Progress Note - Psychiatric Progress Note Patient seen today, length of contact: pt evaluated discussed with team chrat reviewed Patient Chief Complaint: I am feeling better Problems Identified/Issues Discussed: pt evaluated . seen in bed, continues to present with depressed affect, limited insight into illness, minimizing the use of alcohol pt reported feeling worried about her current financial situation being unemployed, discussed with pt increasing dose of lexapro and referral to outpatient rehab on discharge pt denied any current suicidal or homicidal ideations denied perceptual disturbances, no reported side effects of medications Medical Problems: AT LEAST THREE INPATIENT ADMISSIONS FOR DEPRESSION AND ALCOHOL USE DSM 5 Symptoms Update: alcohol use disorder major depression Medication Change: Yes (increase lexapro) Medical Record Reviewed: Yes Mental Status Examination - Cognitive Function Orientation: Person, Place Attention: WNL Concentration: WNL Association: WNL Fund of Knowledge: WN Decription of patient's judgement and insights: fair insight and judgment - Mood Mood: Depressed, Anxious - Affect Affect: Constricted, Depressed - Speech Speech: Soft - Formal Thought Process Formal Thought Process: Circumstantial Psychotic Thoughts and Behaviors: denied current perceptual disturbances - Suicidal Ideation Suicidal Ideation: No - Homicidal Ideation Homicidal Ideation: No Goal/Treatment Plan - Goal/Treatment Plan Need for Continued Stay: Severe depression anxiety, Discharge may exacerbated symptoms Progress Toward Problem(s) and Goals/Treatment Plan: discontinue ativan INCREASE lexapro 10mg daily with plan to uptitrate trazodone 100mg qhs motivational and supportive therapy
[2017-07-22 09:09] VITALS: BP 95/64; PULSE 60; TEMP 97.7
[2017-07-22] MEDS: Multivitamin Vitamin B Complex (Nephro-Vite) Tab PO SCH (10:00)
[2017-07-22] MEDS: Furosemide 40 mg/5 mL Oral Soln UD PO SCH (10:15)
--- NOTE | 2017-07-22 13:07 | PCM.PYCHDC ---
Mental Status Examination - Mental Status Examination Orientation: Person, Place, Situation Memory: Intact Mood: Neutral Affect: Broad Speech: Appropriate Attention: WNL Concentration: WNL Association: WNL Fund of Knowledge: WNL Formal Thought Process: No Impairment Description of patient's judgement and insight: fair insight and judgment Psychotic Thoughts and Behaviors: denied current perceptual disturbances, non elicited Suicidal Ideation: No Current Homicidal Ideation?: No Discharge Summary - Discharge Note Reason for Hospitalization: pt requested help pt with previous diagnosis of depression and alcohol use disorder, currently non compliant with treatment or follow up due to financial difficulties, pt has been abstinent for the past 8months, reported have been increasingly depressed due to strained relation with her children and boy friend, episodes of tearfullness, poor sleep with early insomnia, low energy, two days prior to evaluation she started using alcohol again, pt felt more depressed started experiencing suicidal idetaions with plan to cut her wrist, she came to ER seeking help, pt continues to feel depressed, reported passive suicidal ideation wishing she was not alive but no active plan on the unit, reported non command auditory hallucinations putting her down, denied homicidal ideations, BAL 419 Consultations:: List each consultation separately and include: 1. Reason for request. 2. Findings. 3. Follow-up Summary of Hospital Course include:: 1. Description of specific treatment plan utilized for patients during their course of treatmen. 2. Summarize the time- course for resolution of acute symptoms and/or regressed behaviors. 3. Describe issues identified and worked on during hospitalization. 4. Describe medication utilized. 5. Describe medical problems identified and treated. 6. Reassessment of suicide risk Summary of Hospital Course: pt ON ADMISSION WAS STARTED ON LIBRIUM PROTACOL FOR SYMPTOMS AND SIGNS OF ALCOHOL WITHDRAWAA;, PT PRESENTED WITH HYPERTENSION,BP noted 180/100, family practice was consulted and they started patient on inderal 10mg tid and norvasc and lasix, BP was stabilized and pt was changed from librium to ativan protocol which was down titrated gradually, pt was started on lexapro , uptitrated to 10mg CBT, motivational, group and suopportive therapy provided pt on discharge mental status was stable, denied suicidal or homicidal ideations denied perceptual disturbances follow up arranged by professor of social work at [facility] outpatient and [facility] program - Diagnosis (1) Depression Current Visit: Yes Status: Acute - Final Diagnosis (DSM 5) Condition upon Discharge: FAIR DSM 5: MAJOR DEPRESSION ALCOHOL USE DISORDER Disposition: HOME/ ROUTINE Follow-up Treatment Plan: [facility], OUTPATIENT , AND [facility] Prescriptions/Medication Reconciliation: amLODIPine [Norvasc] 5 mg PO DAILY 15 Days #15 tab Escitalopram [Lexapro] 10 mg PO DAILY 30 Days #30 tab Furosemide [Lasix] 10 mg PO DAILY 15 Days #15 udc traZODone [Desyrel] 100 mg PO HS 30 Days #30 tab Vitamin B Complex/Vit C/Folic [Nephro-Kenneth] 1 tab PO DAILY 30 Days #30 tab
== END 2017-07-22 12:58 | disposition home or self-care (01) | DRG 885 ==
LOC: H.ER 17:05 → H.ERHOLD 07-19 04:49 → H.PSYCH 07-19 05:50
PROVIDERS: ADMIT Psychiatry & Neurology Psychiatry; ATTEND Psychiatry & Neurology Psychiatry
PROC: GZHZZZZ Group Psychotherapy (ICD-10-PCS; principal; 2017-07-19)
PROC: GZ58ZZZ Individual Psychotherapy, Cognitive-Behavioral (ICD-10-PCS; 2017-07-19)
PROC: HZ52ZZZ Individual Psychotherapy for Substance Abuse Treatment, Cognitive-Behavioral (ICD-10-PCS; 2017-07-19)
DX: F33.2 Major depressive disorder, recurrent severe without psychotic features (principal); R45.851 Suicidal ideations; F10.229 Alcohol dependence with intoxication, unspecified; Y90.8 Blood alcohol level of 240 mg/100 ml or more; K70.30 Alcoholic cirrhosis of liver without ascites; Z91.19 Patient's noncompliance with other medical treatment and regimen; Z91.410 Personal history of adult physical and sexual abuse; Z81.8 Family history of other mental and behavioral disorders; I10 Essential (primary) hypertension; J45.909 Unspecified asthma, uncomplicated; F41.9 Anxiety disorder, unspecified; K29.70 Gastritis, unspecified, without bleeding; R00.0 Tachycardia, unspecified; Z86.19 Personal history of other infectious and parasitic diseases

== ENCOUNTER 2017-11-24 10:47 | Emergency (ER) | payer OTHER ==
[2017-11-24 10:53] VITALS: BMI 29.0
[2017-11-24] MEDS ORDERED: Thiamine 100 mg/ml Inj IM ONE (11:27)
[2017-11-24 11:44] LABS: BASO # 0.1 K/uL (0.0-0.2); BASO % 1.1 % (0.0-2.0); EOS # 0.1 K/uL (0.0-0.7); EOS % 2.3 % (0.0-4.0); HEMOGLOBIN 12.7 g/dL (12.0-16.0); LYMPH % 35.5 % (20.0-40.0); MEAN CELL VOLUME 94.6 fl (81.0-99.0); MEAN CORPUSCULAR HEMOGLOBIN 31.9 pg (27.0-31.0); MEAN CORPUSCULAR HGB CONC 33.8 g/dL (33.0-37.0); MEAN PLATELET VOLUME 9.7 fl (7.2-11.7); MONO # 0.7 K/uL (0.0-0.8); MONO % 13.2 % (0.0-10.0); NEUT # 2.6 K/uL (1.8-7.0); NEUT % 47.9 % (50.0-75.0); RBC 3.99 Mil/uL (3.80-5.20); RED CELL DISTRIBUTION WIDTH 19.2 % (11.5-14.5); WHITE BLOOD COUNT 5.5 K/uL (4.8-10.8)
[2017-11-24 12:01] LABS: ACETAMINOPHEN < 10.0 ug/ml (10.0-30.0); SALICYLATE < 1.0 mg/dl
[2017-11-24 12:13] LABS: ALB/GLOB RATIO 0.9 (1.0-2.1); ALBUMIN 4.1 g/dL (3.5-5.0); ALT/SGPT 65 U/L (9-52); AST/SGOT 189 U/L (14-36); BLOOD UREA NITROGEN 5 mg/dl (7-17); CALCIUM 8.7 mg/dL (8.4-10.2); GFR NON-AFRICAN AMERICAN > 60; LIPASE 369 U/L (23-300)
--- NOTE | 2017-11-24 13:03 | ED PDOC ---
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 denies: Suicidal Plan Involuntary Hold By: Emergency Physician Additional History Per: Prior Records Additional Complaint(s): 47yo female hx etoh abuse, cirrhosis, presents noting ongoing and worsening depression, thought of self harm without plan, hearing voices and recent return to alcohol abuse. Notes "lumps" in her upper abdomen but denies melena, hematemesis, syncope or fever. Denies drug ingestion. Admits to drinking 6 beers today, prior hadnt ingested alcohol for 6 months she states. Past Medical History Reviewed: Historical Data, Nursing Documentation, Vital Signs Vital Signs: Last Vital Signs Temp 98.5 F 11/24/17 11:38 Pulse 90 11/24/17 11:38 Resp 17 11/24/17 11:38 BP 152/97 H 11/24/17 11:38 Pulse Ox 97 11/24/17 11:38 - Medical History PMH: Anxiety, Asthma, Depression, Gastritis, HTN, Pancreatitis Denies: Alzheimer's Disease, Anemia, Arthritis, Atrial Fibrillation, Bipolar Disorder, Bronchitis, CAD, Cardia Arrhythmia, CHF, COPD, Crohn's Disease, Dementia, Diabetes, Diverticulitis, Emphysema, Fractures, Gall Bladder Disease, Hepatitis, HIV, Hypercholesterolemia, Hyperthyroidism, Hypothyroidism, Kidney Stones, Migraine, Mitral Valve Prolapse, Multiple Sclerosis, Osteoporosis, Paranoia, Parkinson's Disease, Peripheral Edema, Pneumonia, Post Traumatic Stress Disorder, Pulmonary Embolism, Chronic Kidney Disease, Rheumatoid Arthritis, Schizophrenia, Seizures, Sickle Cell Disease, Sexually Transmitted Disease, Sleep Apnea, TIA - Surgical History Surgical History: Endoscopy, Denies: Appendectomy, CABG, Carotid Endarterectomy, Cholecystectomy, Coronary Stent, Pacemaker, Tonsillectomy - Family History Family History: States: Unknown Family Hx - Social History Alcohol: Occasional Drugs: Denies - Immunization History Hx Tetanus Toxoid Vaccination: No Hx Influenza Vaccination: No Hx Pneumococcal Vaccination: No - Home Medications Home Medications: Ambulatory Orders Medication Instructions Recorded Famotidine [Pepcid] 20 mg PO BID #28 tab 12/23/16 Escitalopram [Lexapro] 10 mg PO DAILY 30 Days #30 tab 07/22/17 Furosemide [Lasix] 10 mg PO DAILY 15 Days #15 udc 07/22/17 Vitamin B Complex/Vit C/Folic 1 tab PO DAILY 30 Days #30 tab 07/22/17 [Nephro-Kenneth] amLODIPine [Norvasc] 5 mg PO DAILY 15 Days #15 tab 07/22/17 traZODone [Desyrel] 100 mg PO HS 30 Days #30 tab 07/22/17 - Allergies Allergies/Adverse Reactions: Allergies Allergy/AdvReac Type Severity Reaction Status Date / Time No Known Allergies Allergy Verified 07/18/17 17:14 Review of Systems Review Of Systems: ROS cannot be obtained secondary to pt's inabilty to answer questions. (intox) Constitutional: Negative for: Fever, Chills Gastrointestinal: Positive for: Abdominal Pain. Negative for: Hematochezia, Hematemesis Psych: Positive for: Anxiety, Depression Physical Exam - Reviewed Nursing Documentation Reviewed: Yes Vital Signs Reviewed: Yes - Physical Exam Appears: Positive for: Non-toxic (+AOB) Head Exam: Positive for: ATRAUMATIC, NORMAL INSPECTION, NORMOCEPHALIC Skin: Positive for: Normal Color, Warm, DRY Eye Exam: Positive for: EOMI, Normal appearance, PERRL ENT: Positive for: Normal ENT Inspection Neck: Positive for: Normal, Painless ROM Cardiovascular/Chest: Positive for: Regular Rate, Rhythm Respiratory: Positive for: CNT, Normal Breath Sounds Gastrointestinal/Abdominal: Positive for: Soft, Other (no masses palpable on supine exam). Negative for: Tenderness, Guarding, Rebound Back: Positive for: Normal Inspection Extremity: Positive for: Normal ROM Neurologic/Psych: Positive for: Alert, Oriented, Mood/Affect (flat, anxious), Other (speech clear but AOB). Negative for: human resources temp II-XII, Motor/Sensory Deficits , Aphasia, Facial Droop - Laboratory Results Result Diagrams: 11/24/17 11:30 11/24/17 11:30 - ECG O2 Sat by Pulse Oximetry: 97 Medical Decision Making Medical Decision Making: placed 1:1 obs obtain bloodwork, EKG, when clinically sober obtain crisis eval. Note- told registration possible blindness? She denies to RN or MD. labs reviewed, elev LFTs c/w prior. Mild elev lipase. WBC normal. Accession No. : [id number] Patient Name / ID : SUZANNE IRVING / [id number] Exam Date : 11/24/2017 15:02:46 ( Approved ) Study Comment : Sex / Age : F / 47Y Creator : Aliya Coronel MD Dictator : Aliya Coronel MD Cardroom Manager : Manager Of Revenue : Aliya Coronel MD Approver2 : Report Date : 11/24/2017 16:18:09 My Comment : Date of service: 11/24/2017 PROCEDURE: CT Abdomen and Pelvis with contrast HISTORY: Abdominal pain, ETOH abuse, mildly elevated lipase COMPARISON: 02/27/2016. TECHNIQUE: CT scan of the abdomen and pelvis was performed after administration of intravenous contrast. Oral contrast was not administered. Coronal and sagittal reformatted images were obtained. Contrast dose: 95 cc Omnipaque 300 Radiation dose: Total exam DLP = 781.55 mGy-cm. This CT exam was performed using one or more of the following dose reduction techniques: Automated exposure control, adjustment of the mA and/or kV according to patient size, and/or use of iterative reconstruction technique. FINDINGS: LOWER THORAX: The visualized lungs are clear. LIVER: Normal in size with diffuse fatty changes and nodular contour. There is redemonstration of innumerable hypodense lesions throughout the liver, majority are too small to characterize by CT criteria but likely simple cysts. The largest in the right hepatic lobe measures 13 mm and has fluid density. GALLBLADDER AND BILE DUCTS: Multiple gallstones. PANCREAS: Normal in size with homogeneous enhancement. No gross lesion or ductal dilatation. SPLEEN: Mild splenomegaly. No focal lesion. ADRENALS: No discrete nodule. KIDNEYS AND URETERS: Normal in size with homogeneous enhancement. No hydronephrosis. No solid mass. VASCULATURE: There is recanalization of the umbilical vein and perisplenic varices. . No aortic aneurysm. BOWEL: The small bowel loops are normal in caliber. There is left colonic diverticulosis. There is apparent mild mural thickening in the sigmoid colon. No bowel dilatation or obstruction. APPENDIX: Normal appendix. PERITONEUM: No free fluid. No free air. LYMPH NODES: No enlarged lymph nodes. BLADDER: Well distended and normal in appearance. REPRODUCTIVE: The uterus is surgically absent. BONES: No acute fracture. Within normal limits for the patient's age. OTHER FINDINGS: None. IMPRESSION: Left colonic diverticulosis. Apparent mild mural thickening in the sigmoid colon is nonspecific and could be related to underdistention however early acute sigmoid diverticulitis cannot be excluded. No perforation or abscess. Cirrhosis of liver, mild splenomegaly and recanalization of the umbilical vein with perisplenic varices. Innumerable subcentimeter round low-density lesions in the liver nonspecific and too small to characterize by CT criteria the largest in the right hepatic lobe measures 13 mm and is compatible with a simple cyst. No CT evidence for acute pancreatitis. Cholelithiasis. patient denies LLQ pain and is nontender in area. low suspicion for diverticulitis. Normal WBC. Crisis eval pending. per crisis will eval at 8pm when sobriety obtained given etoh level endorse Dr Garcia pending dispo Disposition - Clinical Impression Clinical Impression: Alcohol intoxication, Depression, Alcoholic cirrhosis - Patient ED Disposition Is Patient to be Admitted: Transfer of Care - Disposition Disposition: Transfer of Care Disposition Time: 18:51 Forms: [employer] (Tajik) Patient Signed Over To: Manohar Garcia
[2017-11-24] MEDS ORDERED: Sodium Chloride 0.9% 50 ML IV ONE (14:41)
[2017-11-24] MEDS ORDERED: Iohexol 300 100 ML IJ ONE (14:41)
--- NOTE | 2017-11-24 16:19 | CT ---
Date of service: 11/24/2017 PROCEDURE: CT Abdomen and Pelvis with contrast HISTORY: Abdominal pain, ETOH abuse, mildly elevated lipase COMPARISON: 02/27/2016. TECHNIQUE: CT scan of the abdomen and pelvis was performed after administration of intravenous contrast. Oral contrast was not administered. Coronal and sagittal reformatted images were obtained. Contrast dose: 95 cc Omnipaque 300 Radiation dose: Total exam DLP = 781.55 mGy-cm. This CT exam was performed using one or more of the following dose reduction techniques: Automated exposure control, adjustment of the mA and/or kV according to patient size, and/or use of iterative reconstruction technique. FINDINGS: LOWER THORAX: The visualized lungs are clear. LIVER: Normal in size with diffuse fatty changes and nodular contour. There is redemonstration of innumerable hypodense lesions throughout the liver, majority are too small to characterize by CT criteria but likely simple cysts. The largest in the right hepatic lobe measures 13 mm and has fluid density. GALLBLADDER AND BILE DUCTS: Multiple gallstones. PANCREAS: Normal in size with homogeneous enhancement. No gross lesion or ductal dilatation. SPLEEN: Mild splenomegaly. No focal lesion. ADRENALS: No discrete nodule. KIDNEYS AND URETERS: Normal in size with homogeneous enhancement. No hydronephrosis. No solid mass. VASCULATURE: There is recanalization of the umbilical vein and perisplenic varices. . No aortic aneurysm. BOWEL: The small bowel loops are normal in caliber. There is left colonic diverticulosis. There is apparent mild mural thickening in the sigmoid colon. No bowel dilatation or obstruction. APPENDIX: Normal appendix. PERITONEUM: No free fluid. No free air. LYMPH NODES: No enlarged lymph nodes. BLADDER: Well distended and normal in appearance. REPRODUCTIVE: The uterus is surgically absent. BONES: No acute fracture. Within normal limits for the patient's age. OTHER FINDINGS: None. IMPRESSION: Left colonic diverticulosis. Apparent mild mural thickening in the sigmoid colon is nonspecific and could be related to underdistention however early acute sigmoid diverticulitis cannot be excluded. No perforation or abscess. Cirrhosis of liver, mild splenomegaly and recanalization of the umbilical vein with perisplenic varices. Innumerable subcentimeter round low-density lesions in the liver nonspecific and too small to characterize by CT criteria the largest in the right hepatic lobe measures 13 mm and is compatible with a simple cyst. No CT evidence for acute pancreatitis. Cholelithiasis.
--- NOTE | 2017-11-24 21:36 | ED PDOC ---
- Laboratory Results Result Diagrams: 11/24/17 11:30 11/24/17 11:30 - ECG O2 Sat by Pulse Oximetry: 97 (RA) Pulse Ox Interpretation: Normal Medical Decision Making Medical Decision Making: Time: 1899 -- Patient endorsed to me by Dr. Rosa, pending crisis evaluation. Time: 2129 -- On re-evaluation, patient is alert, oriented (x3) and clinically sober with a steady gait. Patient is cleared by crisis and diagnosed with major depressive disorder and severe alcohol use disorder by Dr. Mccoy. Scribe Attestation: Documented by Ayad Johnson acting as a scribe for Dr. Manohar Garcia MD. Provider Scribe Attestation: All medical record entries made by the Scribe were at my direction and personally dictated by me. I have reviewed the chart and agree that the record accurately reflects my personal performance of the history, physical exam, medical decision making, and the department course for this patient. I have also personally directed, reviewed, and agree with the discharge instructions and disposition. Disposition - Clinical Impression Clinical Impression: Alcohol intoxication, Depression, Alcoholic cirrhosis - POA Present On Arrival: None - Disposition Referrals: Alcoholics Anonymous [Outside] Disposition: Routine/Home Disposition Time: 21:30 Condition: STABLE Instructions: Alcohol Abuse and Alcoholism (DC) Forms: [facility] (Bruneian) Print Language: SYRIAC
--- NOTE | 2017-11-24 21:36 | CARD ---
APPROVED REPORT Date of service: 11/24/2017 EKG Measurement Heart [id number] <Conclusion> Normal sinus rhythm Prolonged QT Abnormal ECG
[2017-11-24 23:05] VITALS: BP 131/80; PULSE 85; RESP 18; TEMP 98.7; O2SAT 98
== END 2017-11-24 23:07 | disposition home or self-care (01) ==
LOC: H.ER 10:47
DX: F10.129 Alcohol abuse with intoxication, unspecified (principal); F32.9 Major depressive disorder, single episode, unspecified; K70.30 Alcoholic cirrhosis of liver without ascites; K57.30 Diverticulosis of large intestine without perforation or abscess without bleeding
CPT/HCPCS: 74177; 80053; 80320; 80329; 82948; 83690; 84443; 84484; 85025; 93005; 96372; 99284; J3411; Q9967

== ENCOUNTER 2017-12-17 14:48 | Observation (INO) | payer OTHER ==
[2017-12-17 14:48] VITALS: BMI 29.0
[2017-12-17] MEDS ORDERED: Sodium Chloride 0.9% 1,000 ML IV STA (14:58)
[2017-12-17 15:39] LABS: INR 1.5; PROTHROMBIN TIME 16.2 Seconds (9.8-13.1)
[2017-12-17 15:41] LABS: PARTIAL THROMBOPLASTIN TIME 41.8 Seconds (25.6-37.1)
[2017-12-17 15:45] LABS: BASO % 0.9 % (0.0-2.0); EOS % 0.7 % (0.0-4.0); LYMPH # 0.4 K/uL (1.0-4.3); LYMPH % 15.5 % (20.0-40.0); MEAN CELL VOLUME 94.5 fl (81.0-99.0); MEAN CORPUSCULAR HEMOGLOBIN 31.4 pg (27.0-31.0); MEAN CORPUSCULAR HGB CONC 33.2 g/dL (33.0-37.0); MEAN PLATELET VOLUME 10.2 fl (7.2-11.7); MONO # 0.4 K/uL (0.0-0.8); MONO % 15.9 % (0.0-10.0); NEUT # 1.8 K/uL (1.8-7.0); RBC 3.51 Mil/uL (3.80-5.20); RED CELL DISTRIBUTION WIDTH 17.4 % (11.5-14.5); WHITE BLOOD COUNT 2.7 K/uL (4.8-10.8)
[2017-12-17 16:02] LABS: ALB/GLOB RATIO 0.8 (1.0-2.1); ALBUMIN 3.8 g/dL (3.5-5.0); ALT/SGPT 43 U/L (9-52); AST/SGOT 118 U/L (14-36); BLOOD UREA NITROGEN 6 mg/dl (7-17); CALCIUM 8.9 mg/dL (8.4-10.2); GFR NON-AFRICAN AMERICAN > 60; LIPASE 259 U/L (23-300)
--- NOTE | 2017-12-17 16:04 | US ---
Date of service: 12/17/2017 HISTORY: epigastric abd pain COMPARISON: None. TECHNIQUE: Sonographic evaluation of the right upper quadrant of the abdomen. FINDINGS: LIVER: Measures 13.8 cm in length. Overall increased echogenicity probably related to fatty infiltration. No appreciable liver mass. No ascites surrounding the liver. No intrahepatic ductal dilatation. Examination of the liver is limited by body habitus. GALLBLADDER: There appear to be a number of layering gallstones. No gallbladder wall thickening and/or pericholecystic fluid is seen. No sonographic Allen's sign was elicited by the technologist COMMON BILE DUCT: Measures 5 Mm. No stones. No dilatation. PANCREAS: Limited visualization of the pancreas shows no evidence of enlargement. The head and tail of the pancreas were obscured by bowel gas. RIGHT KIDNEY: Measures 11 cm in length. Normal echogenicity. No calculus, mass, or hydronephrosis. AORTA: Limited visualization of the aorta shows no evidence of aneurysm. IVC: Unremarkable. OTHER FINDINGS: None . IMPRESSION: Cholelithiasis. No ultrasound evidence of acute cholecystitis. Limited examination due to body habitus. Probable fatty infiltration of the liver. No hydronephrosis.
[2017-12-17] MEDS ORDERED: Potassium Chloride 20 mEq ER Tab PO STA (16:10)
[2017-12-17] MEDS ORDERED: Potassium Chloride 20 mEq ER Tab PO ONE (16:17)
[2017-12-17 16:39] LABS: BARBITURATES, UR NEGATIVE (NEGATIVE); BENZODIAZEPINES, UR NEGATIVE (NEGATIVE); OPIATES, UR NEGATIVE (NEGATIVE); PHENCYCLIDINE, UR NEGATIVE (NEGATIVE)
--- NOTE | 2017-12-17 17:06 | ED PDOC ---
HPI: Abdomen Time Seen by Provider: 12/17/17 14:55 Chief Complaint (Nursing): GI Problem Chief Complaint (Provider): GI Problem History Per: Patient History/Exam Limitations: no limitations Onset/Duration Of Symptoms: Days (x2) Current Symptoms Are (Timing): Still Present Additional Complaint(s): 47 year old female presenting for evaluation multiple episodes of soft brown stool with bright red blood after wiping for the past 2 days. Patient states there was a large amount of blood present after wiping. Patient also reports feeling weak and shaky, as well as epigastric pain. She states she had 2 episodes of non-bloody vomiting. Of note, patient has a history of cirrhosis and states she has not had an alcoholic drink since last month. Patient denies any diarrhea, chest pain, shortness of breath, hematemesis, melena, or history of GI bleed. Of note, patient has had 8 blood transfusions in the past. Past Medical History Reviewed: Historical Data, Nursing Documentation, Vital Signs Vital Signs: Last Vital Signs Temp 98.6 F 12/17/17 20:03 Pulse 89 12/17/17 20:03 Resp 17 12/17/17 20:03 BP 107/68 12/17/17 20:03 Pulse Ox 99 12/17/17 20:03 - Medical History PMH: Anxiety, Asthma, Depression, Gastritis, HTN, Pancreatitis Denies: Alzheimer's Disease, Anemia, Arthritis, Atrial Fibrillation, Bipolar Disorder, Bronchitis, CAD, Cardia Arrhythmia, CHF, COPD, Crohn's Disease, Dementia, Diabetes, Diverticulitis, Emphysema, Fractures, Gall Bladder Disease, Hepatitis, HIV, Hypercholesterolemia, Hyperthyroidism, Hypothyroidism, Kidney Stones, Migraine, Mitral Valve Prolapse, Multiple Sclerosis, Osteoporosis, Paranoia, Parkinson's Disease, Peripheral Edema, Pneumonia, Post Traumatic Stress Disorder, Pulmonary Embolism, Chronic Kidney Disease, Rheumatoid Arthritis, Schizophrenia, Seizures, Sickle Cell Disease, Sexually Transmitted Disease, Sleep Apnea, TIA - Surgical History Surgical History: Endoscopy, Denies: Appendectomy, CABG, Carotid Endarterectomy, Cholecystectomy, Coronary Stent, Pacemaker, Tonsillectomy - Family History Family History: States: Unknown Family Hx - Immunization History Hx Tetanus Toxoid Vaccination: No Hx Influenza Vaccination: No Hx Pneumococcal Vaccination: No - Home Medications Home Medications: Ambulatory Orders Medication Instructions Recorded Famotidine [Pepcid] 20 mg PO BID #28 tab 12/23/16 Escitalopram [Lexapro] 10 mg PO DAILY 30 Days #30 tab 07/22/17 Furosemide [Lasix] 10 mg PO DAILY 15 Days #15 udc 07/22/17 Vitamin B Complex/Vit C/Folic 1 tab PO DAILY 30 Days #30 tab 07/22/17 [Nephro-Kenneth] amLODIPine [Norvasc] 5 mg PO DAILY 15 Days #15 tab 07/22/17 traZODone [Desyrel] 100 mg PO HS 30 Days #30 tab 07/22/17 - Allergies Allergies/Adverse Reactions: Allergies Allergy/AdvReac Type Severity Reaction Status Date / Time No Known Allergies Allergy Verified 07/18/17 17:14 Review of Systems ROS Statement: Except As Marked, All Systems Reviewed And Found Negative Constitutional: Positive for: Weakness Cardiovascular: Negative for: Chest Pain Respiratory: Negative for: Shortness of Breath Gastrointestinal: Positive for: Vomiting, Abdominal Pain, Hematochezia. Negative for: Diarrhea, Melena, Hematemesis Physical Exam - Reviewed Nursing Documentation Reviewed: Yes Vital Signs Reviewed: Yes - Physical Exam Appears: Positive for: Non-toxic, No Acute Distress (tremors noted) Head Exam: Positive for: ATRAUMATIC, NORMAL INSPECTION, NORMOCEPHALIC Skin: Positive for: Normal Color, Warm, Dry. Negative for: Rash Eye Exam: Positive for: EOMI, Normal appearance, PERRL ENT: Positive for: Normal ENT Inspection Neck: Positive for: Normal, Painless ROM, Supple Cardiovascular/Chest: Positive for: Regular Rate, Rhythm. Negative for: Murmur Respiratory: Positive for: Normal Breath Sounds. Negative for: Respiratory Distress Gastrointestinal/Abdominal: Positive for: Normal Exam, Soft. Negative for: Tenderness Back: Positive for: Normal Inspection. Negative for: L CVA Tenderness, R CVA Tenderness, Vertebral Tenderness Rectal: Positive for: Rectal Tone Is: (intact), Other (Rafaela Rossi RN present during exam; (+) nazario blood noted mixed with brown stool). Negative for: Black Stool, Hemorrhoids Extremity: Positive for: Normal ROM. Negative for: Pedal Edema, Deformity Neurologic/Psych: Positive for: Alert, Oriented (x3) - Laboratory Results Result Diagrams: 12/17/17 15:00 12/17/17 15:00 - ECG ECG: Positive for: Interpreted By Me ECG Rhythm: Positive for: Sinus Rhythm. Negative for: ST/T Changes Rate: 97 O2 Sat by Pulse Oximetry: 99 (RA) Pulse Ox Interpretation: Normal - Progress ED Course And Treament: Pt. evaluated by Dr. Mckeon and agrees with plan and care. Case d/w Dr. Means and arrangements made for admission. Case d/w GI fellow, covering for Dr. Zamora, who agrees with plan and care. Will evaluate pt. in hospital. Medical Decision Making Medical Decision Making: Plan: -Blood type and screen -EKG -Alcohol serum -CMP -UDS -Beta-HCG -Lipase -CBC -PTT -PT/INR -Ativan 1 mg IVP -Potassium Chloride 20 meq PO -Norvasc 10mg PO -Protonix 80mg IVP -IV insertion -Occult blood -US Abdomen -Urinalysis -Reevaluation 1603 US ABDOMEN FINDINGS: LIVER: Measures 13.8 cm in length. Overall increased echogenicity probably related to fatty infiltration. No appreciable liver mass. No ascites surrounding the liver. No intrahepatic ductal dilatation. Examination of the liver is limited by body habitus. GALLBLADDER: There appear to be a number of layering gallstones. No gallbladder wall thickening and/or pericholecystic fluid is seen. No sonographic Allen's sign was elicited by the technologist COMMON BILE DUCT: Measures 5 Mm. No stones. No dilatation. PANCREAS: Limited visualization of the pancreas shows no evidence of enlargement. The head and tail of the pancreas were obscured by bowel gas. RIGHT KIDNEY: Measures 11 cm in length. Normal echogenicity. No calculus, mass, or hydronephrosis. AORTA: Limited visualization of the aorta shows no evidence of aneurysm. IVC: Unremarkable. OTHER FINDINGS: None. IMPRESSION: Cholelithiasis. No ultrasound evidence of acute cholecystitis. Limited examination due to body habitus. Probable fatty infiltration of the liver. No hydronephrosis. ----- Scribe Attestation: Documented by Rosas Bempong, acting as a scribe for Levar Akbar PA-C. Provider Scribe Attestation: All medical record entries made by the Scribe were at my direction and personally dictated by me. I have reviewed the chart and agree that the record accurately reflects my personal performance of the history, physical exam, medical decision making, and the department course for this patient. I have also personally directed, reviewed, and agree with the discharge instructions and disposition. Disposition - Clinical Impression Clinical Impression: Cirrhosis, GI bleed, Alcohol withdrawal - Patient ED Disposition Is Patient to be Admitted: Yes - Disposition Disposition Time: 16:20 Condition: FAIR
[2017-12-17] MEDS ORDERED: Thiamine 100 MG, Folic Acid 1 MG, Multivitamin (MVI) 10 ML in Sodium Chloride 0.9% 1,00... IV SCH (17:45)
[2017-12-17] MEDS ORDERED: Sodium Chloride 0.9% 1,000 ML IV SCH (17:45)
[2017-12-17 17:55] LABS: SQUAMOUS EPITHIAL 11 /hpf (0-5); URINE BACTERIA OCC (<OCC); URINE BILIRUBIN SMALL (NEGATIVE); URINE BLOOD SMALL (NEGATIVE); URINE CLARITY SLIGHTY-CLOUDY (Clear); URINE COLOR AMBER (YELLOW); URINE GLUCOSE (UA) NEG (Normal); URINE HYALINE CAST 0-2 /hpf (0-2); URINE LEUKOCYTE ESTERASE NEG Leu/uL (Negative); URINE PROTEIN 100 mg/dL (NEGATIVE)
--- NOTE | 2017-12-17 18:13 | CP.PCM.HP ---
Addendum entered and electronically signed by Rosalva Enrique MD 12/17/17 19:34: Correction "Non bloody ,non billous vomiting" Original Note: History of Present Illness - History of Present Illness History of Present Illness: CC: "Blood in stool" HPI: Pt is a 47 y/o female w/ pmhx significant for Alcoholic Liver Cirrhosis, HTN, and Depression who presented to ED with complaints of 2 day hx of multiple episodes of BRBPR associated with 2 episodes of billous vomiting and mild lower abdominal pain. Denies alcohol use (last drink 1 month ago) but did take Ibuprofen yesterday for her abdominal pain which resolved. Otherwise denies hx of constipation, hemorrhoids, abdominal distension, hemetemesis, coffee ground emesis, chest pain, sob, fever, recent illnesses, confusion. ROS: + generalized weakness. Otherwise 12 point ROS negative. PMD: Dr. Ponce, [facility] PMHx: Liver Cirrhosis- secondary to Alcohol abuse vs questionable Hep C, not followed by GI outpatient, Has hx of Ascities (11 L removed in 2016) and Esophageal variceal bleed in 2016 (no endoscopy records available) HTN- poorly controlled Depression- Followed by Dr. 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 S/P 1L bolus NS S/P Norvasc 5mg IV S/P Ativan 1mg IV S/P Protonix IV S/P KCL Present on Admission - Present on Admission Any Indicators Present on Admission: No History of DVT/PE: No History of Uncontrolled Diabetes: No Urinary Catheter: No Decubitus Ulcer Present: No Review of Systems - Constitutional Constitutional: absent: Fever, Malaise - Cardiovascular Cardiovascular: absent: Chest Pain, Diaphoresis - Respiratory Respiratory: absent: Cough, Dyspnea - Gastrointestinal Gastrointestinal: Hematochezia. absent: Abdominal Pain, Coffee Ground Emesis, Constipation, Hematemesis - Genitourinary Genitourinary: absent: Hematuria Past Patient History - Infectious Disease Hx of Infectious Diseases: None - Past Medical History & Family History Past Medical History?: Yes - Past Social History Smoking Status: Never Smoked - CARDIAC Hx Atrial Fibrillation: No Hx Cardia Arrhythmia: No Hx Congestive Heart Failure: No Hx Hypercholesterolemia: No Hx Hypertension: Yes Hx Mitral Valve Prolapse: No Hx Pacemaker: No Hx Peripheral Edema: No - PULMONARY Hx Asthma: Yes Hx Bronchitis: No Hx Chronic Obstructive Pulmonary Disease (COPD): No Hx Emphysema: No Hx Pneumonia: No Hx Pulmonary Embolism: No Hx Sleep Apnea: No - NEUROLOGICAL Hx Alzheimer's Disease: No Hx Dementia: No Hx Migraine: No Hx Multiple Sclerosis: No Hx Parkinson's Disease: No Hx Seizures: No Hx Transient Ischemic Attacks (TIA): No - HEENT Hx HEENT Problems: No - RENAL Hx Chronic Kidney Disease: No Hx Kidney Stones: No - ENDOCRINE/METABOLIC Hx Hyperthyroidism: No Hx Hypothyroidism: No - HEMATOLOGICAL/ONCOLOGICAL Hx Anemia: No Hx Human Immunodeficiency Virus (HIV): No Hx Sickle Cell Disease: No - INTEGUMENTARY Hx Dermatological Problems: No - MUSCULOSKELETAL/RHEUMATOLOGICAL Hx Arthritis: No Hx Fractures: No Hx Osteoporosis: No Hx Rheumatoid Arthritis: No - GASTROINTESTINAL Hx Crohn's Disease: No Hx Diverticulitis: No Hx Gall Bladder Disease: No Hx Gastritis: Yes Hx Pancreatitis: Yes - GENITOURINARY/GYNECOLOGICAL Hx Sexually Transmitted Disorders: No - PSYCHIATRIC Hx Anxiety: Yes Hx Bipolar Disorder: No Hx Depression: Yes Hx Paranoia: No Hx Post Traumatic Stress Disorder: No Hx Schizophrenia: No - SURGICAL HISTORY Hx Appendectomy: No Hx Carotid Endarterectomy: No Hx Cholecystectomy: No Hx Coronary Artery Bypass Graft: No Hx Coronary Stent: No Hx Tonsillectomy: No - ANESTHESIA Hx Anesthesia: Yes Hx Anesthesia Reactions: No Hx Malignant Hyperthermia: No Meds Allergies/Adverse Reactions: Allergies Allergy/AdvReac Type Severity Reaction Status Date / Time No Known Allergies Allergy Verified 07/18/17 17:14 Physical Exam - Constitutional Appears: No Acute Distress - Eye Exam Eye Exam: Scleral icterus - ENT Exam ENT Exam: Mucous Membranes Moist - Neck Exam Neck exam: Positive for: Normal Inspection - Respiratory Exam Respiratory Exam: Clear to Auscultation Bilateral. absent: Rales, Wheezes - Cardiovascular Exam Cardiovascular Exam: REGULAR RHYTHM, +S1, +S2, Systolic Murmur (Mild systolic murmur +1) - GI/Abdominal Exam GI & Abdominal Exam: Normal Bowel Sounds, Soft. absent: Organomegaly, Tenderness Additional comments: No Ascitis - Rectal Exam Rectal Exam: absent: Hemorrhoids - Extremities Exam Extremities exam: Positive for: normal inspection. Negative for: pedal edema - Neurological Exam Neurological exam: Alert, Oriented x3 - Psychiatric Exam Psychiatric exam: Normal Affect - Skin Additional comments: Mild Jaundice Results - Vital Signs Recent Vital Signs: Last Vital Signs Temp 97 F L 12/17/17 17:59 Pulse 98 H 12/17/17 17:59 Resp 19 12/17/17 17:59 BP 156/88 H 12/17/17 17:59 Pulse Ox 98 12/17/17 17:59 - Labs Result Diagrams: 12/17/17 15:00 12/17/17 15:00 Labs: Laboratory Results - last 24 hr 12/17/17 12/17/17 12/17/17 15:00 15:00 15:00 WBC 2.7 L D RBC 3.51 L Hgb 11.0 L Hct 33.1 L MCV 94.5 MCH 31.4 H MCHC 33.2 RDW 17.4 H Plt Count 32 L D MPV 10.2 Neut % (Auto) 67.0 Lymph % (Auto) 15.5 L [place] % (Auto) 15.9 H Eos % (Auto) 0.7 Baso % (Auto) 0.9 Neut # (Auto) 1.8 Lymph # (Auto) 0.4 L [place] # (Auto) 0.4 Eos # (Auto) 0.0 Baso # (Auto) 0.0 PT INR APTT Sodium 136 Potassium 3.4 L Chloride 102 Carbon Dioxide 25 Anion Gap 12 BUN 6 L Creatinine 0.4 L Est GFR ( Amer) > 60 Est GFR (Non-Af Amer) > 60 Random Glucose 106 H Calcium 8.9 Total Bilirubin 4.2 H AST 118 H D ALT 43 Alkaline Phosphatase 129 H Total Protein 8.6 H Albumin 3.8 Globulin 4.8 H Albumin/Globulin Ratio 0.8 L Lipase 259 Urine Color Urine Clarity Urine pH Ur Specific [place] Urine Protein Urine Glucose (UA) Urine Ketones Urine Blood Urine Nitrate Urine Bilirubin Urine Urobilinogen Ur Leukocyte Esterase Urine RBC (Auto) Urine Microscopic WBC Ur Squamous Epith Cells Urine Bacteria Hyaline Casts Stool Occult Blood Urine Opiates Screen Urine Methadone Screen Ur Barbiturates Screen Ur Phencyclidine Scrn Ur Amphetamines Screen U Benzodiazepines Scrn U Oth Cocaine Metabols U Cannabinoids Screen Alcohol, Quantitative < 10 Blood Type O POSITIVE Antibody Screen Negative BBK History Checked Patient has bt 12/17/17 12/17/17 12/17/17 15:00 15:00 16:08 WBC RBC Hgb Hct MCV MCH MCHC RDW Plt Count MPV Neut % (Auto) Lymph % (Auto) [place] % (Auto) Eos % (Auto) Baso % (Auto) Neut # (Auto) Lymph # (Auto) [place] # (Auto) Eos # (Auto) Baso # (Auto) PT 16.2 H INR 1.5 APTT 41.8 H Sodium Potassium Chloride Carbon Dioxide Anion Gap BUN Creatinine Est GFR ( Amer) Est GFR (Non-Af Amer) Random Glucose Calcium Total Bilirubin AST ALT Alkaline Phosphatase Total Protein Albumin Globulin Albumin/Globulin Ratio Lipase Urine Color Cecilia Urine Clarity Slighty-cloudy Urine pH 6.0 Ur Specific [place] 1.027 Urine Protein 100 Urine Glucose (UA) Neg Urine Ketones 20 Urine Blood Small Urine Nitrate Negative Urine Bilirubin Small Urine Urobilinogen 4.0 H Ur Leukocyte Esterase Neg Urine RBC (Auto) 7 H Urine Microscopic WBC 2 Ur Squamous Epith Cells 11 H Urine Bacteria Occ H Hyaline Casts 0-2 Stool Occult Blood Positive H Urine Opiates Screen Negative Urine Methadone Screen Negative Ur Barbiturates Screen Negative Ur Phencyclidine Scrn Negative Ur Amphetamines Screen Negative U Benzodiazepines Scrn Negative U Oth Cocaine Metabols Negative U Cannabinoids Screen Negative Alcohol, Quantitative Blood Type Antibody Screen BBK History Checked Assessment & Plan - Assessment and Plan (Free Text) Assessment: Pt is a 47 y/o female w/ pmhx significant for Alcoholic Liver Cirrhosis, HTN, and Depression who presented to ED with complaints of 2 day hx of multiple episodes of BRBPR associated with 2 episodes of billous vomiting and mild lower abdominal pain. # GI Bleed -Acute -No new episodes. -Hemodynamically stable -Hemoglobin 11 (1 point drop from November) -Serial CBC q 6 -Pantoprazole 40mg IVP daily -NS Maintanence fluids -GI Consulted #Hypertension -Uncontrolled -C/W home antihypertensives: Norvasc 5mg daily, Aldactone 25mg po daily, Pronololol 10mg TID -Vitals q4 #Hypokalemia -Acute, K 3.4 -s/p 20mg KCL -F/U BMP in am # Alcohol abuse -Stated Last drink 1 month ago (later admitted to drinking a few days ago) -CIWA 0 -S/P 1mg Ativan -Ativan prn -Banana Bag #Liver Cirrhosis -Chronic, stable -Endoscopy 4 years ago in [facility] [place] (no report available),pt states normal -Q's hx of Esophageal varices. Will c/w proponolol -No signs of SBP #Depression -Denies feeling depressed, denies SI/HI -C/w Lexapro #Diet -Clear Liquids #DVT ppx -Ambulate as tolerated -Will hold for now in setting of GI bleed Tele for cardiac monitoring Discussed case with Dr. Means
[2017-12-17] MEDS: Oxycodone/Acetaminophen 5/325 mg Tab PO SCH (22:35)
[2017-12-18] MEDS: Oxycodone/Acetaminophen 5/325 mg Tab PO SCH ×2 (04:02→10:45)
[2017-12-18 05:03] LABS: ALB/GLOB RATIO 0.8 (1.0-2.1); ALBUMIN 3.3 g/dL (3.5-5.0); ALT/SGPT 36 U/L (9-52); AST/SGOT 96 U/L (14-36); BLOOD UREA NITROGEN 6 mg/dl (7-17); CALCIUM 8.3 mg/dL (8.4-10.2); GFR NON-AFRICAN AMERICAN > 60
[2017-12-18] MEDS ORDERED: Influenza Vaccine 18yr & older 0.5 ML/45 MCG SYR IM ONE (06:36)
--- NOTE | 2017-12-18 07:28 | CP.PCM.CON ---
<Tray Dykes - Last Filed: 12/18/17 08:01> History of Present Illness - History of Present Illness History of Present Illness: GI Fellow PGY4 consult note. Agata Storm is a very pleasant 47yo amharic speaking female with history of etoh cirrhosis presenting with BRBPR. Patient states she had a small amount of bright red blood from rectum after bowel movement. She states her stool was brown and there was red blood around it, when she wiped. She denies hematemesis, but did vomit two times yesterday. On admission, I discussed case with ED PA who did a rectal exam and saw brown stool with red blood on the side. No external hemorrhoids were reported. This AM, she states she no longer has nausea, abdominal pain or blood in her stool. PMHx - as above PSHx - EGD in [facility], no records. Paracentesis in 2016 with 11L removed FMHx - unremarkable SocHx - living with ex- brother. Last drink was in the last month. Does not smoke. 12pt ROS neg except for above. Past Patient History - Infectious Disease Hx of Infectious Diseases: None - Past Medical History & Family History Past Medical History?: Yes - Past Social History Smoking Status: Never Smoked - CARDIAC Hx Atrial Fibrillation: No Hx Cardia Arrhythmia: No Hx Congestive Heart Failure: No Hx Hypercholesterolemia: No Hx Hypertension: Yes Hx Mitral Valve Prolapse: No Hx Pacemaker: No Hx Peripheral Edema: No - PULMONARY Hx Asthma: Yes Hx Bronchitis: No Hx Chronic Obstructive Pulmonary Disease (COPD): No Hx Emphysema: No Hx Pneumonia: No Hx Pulmonary Embolism: No Hx Sleep Apnea: No - NEUROLOGICAL Hx Alzheimer's Disease: No Hx Dementia: No Hx Migraine: No Hx Multiple Sclerosis: No Hx Parkinson's Disease: No Hx Seizures: No Hx Transient Ischemic Attacks (TIA): No - HEENT Hx HEENT Problems: No - RENAL Hx Chronic Kidney Disease: No Hx Kidney Stones: No - ENDOCRINE/METABOLIC Hx Hyperthyroidism: No Hx Hypothyroidism: No - HEMATOLOGICAL/ONCOLOGICAL Hx AIDS: No Hx Anemia: No Hx Human Immunodeficiency Virus (HIV): No Hx Sickle Cell Disease: No - INTEGUMENTARY Hx Dermatological Problems: No - MUSCULOSKELETAL/RHEUMATOLOGICAL Hx Arthritis: No Hx Falls: No Hx Fractures: No Hx Osteoporosis: No Hx Rheumatoid Arthritis: No - GASTROINTESTINAL Hx Crohn's Disease: No Hx Diverticulitis: No Hx Gall Bladder Disease: No Hx Gastritis: Yes Hx Pancreatitis: Yes Hx Vomiting: Yes - GENITOURINARY/GYNECOLOGICAL Hx Sexually Transmitted Disorders: No - PSYCHIATRIC Hx Anxiety: Yes Hx Bipolar Disorder: No Hx Depression: Yes Hx Paranoia: No Hx Post Traumatic Stress Disorder: No Hx Schizophrenia: No Hx Substance Use: No - SURGICAL HISTORY Hx Appendectomy: No Hx Carotid Endarterectomy: No Hx Section: Yes Hx Cholecystectomy: No Hx Coronary Artery Bypass Graft: No Hx Coronary Stent: No Hx Hysterectomy: Yes Hx Tonsillectomy: No - ANESTHESIA Hx Anesthesia: Yes Hx Anesthesia Reactions: No Hx Malignant Hyperthermia: No Has any member of the family had a problem w/ anesthesia?: No Meds Allergies/Adverse Reactions: Allergies Allergy/AdvReac Type Severity Reaction Status Date / Time No Known Allergies Allergy Verified 07/18/17 17:14 - Medications Medications: Current Medications Acetaminophen (Tylenol 325mg Tab) 650 mg PO Q6 PRN PRN Reason: Fever >100.4 F Amlodipine Besylate (Norvasc) 5 mg PO DAILY [facility] Escitalopram Oxalate (Lexapro) 10 mg PO DAILY [facility] Furosemide (Lasix) 20 mg PO DAILY [facility] Lorazepam (Ativan) 1 mg IVPB Q6 PRN PRN Reason: Agitation Morphine Sulfate (Morphine) 2 mg IVP Q6 PRN PRN Reason: Pain, severe (8-10) Ondansetron HCl (Zofran Inj) 4 mg IVP Q6 PRN PRN Reason: Nausea/Vomiting Oxycodone/Acetaminophen (Percocet 5/325 Mg Tab) 1 tab PO Q6 [facility] Stop: 12/20/17 22:01 Last Admin: 12/18/17 04:02 Dose: Not Given Pantoprazole Sodium (Protonix Inj) 40 mg IVP DAILY [facility] Propranolol HCl (Inderal) 10 mg PO TID [facility] Last Admin: 12/17/17 18:21 Dose: 10 mg Spironolactone (Aldactone) 25 mg PO DAILY [facility] Last Admin: 12/17/17 18:21 Dose: 25 mg Physical Exam - Constitutional Appears: Well, No Acute Distress - Head Exam Head Exam: NORMAL INSPECTION - Eye Exam Eye Exam: EOMI, Normal appearance - ENT Exam ENT Exam: Mucous Membranes Moist - Cardiovascular Exam Cardiovascular Exam: REGULAR RHYTHM, +S1, +S2 - GI/Abdominal Exam GI & Abdominal Exam: Normal Bowel Sounds, Soft - Rectal Exam Rectal Exam: Deferred Additional comments: ED PA performed and reported brown stool with red blood around it. - Neurological Exam Neurological exam: Alert, CN II-XII Intact, Oriented x3 - Psychiatric Exam Psychiatric exam: Normal Affect, Normal Mood - Skin Skin Exam: Dry, Normal Color Results - Vital Signs Recent Vital Signs: Last Vital Signs Temp 98.8 F 12/18/17 04:44 Pulse 62 12/18/17 04:44 Resp 16 12/18/17 04:44 BP 144/90 12/18/17 04:44 Pulse Ox 97 12/18/17 04:44 - Labs Result Diagrams: 12/18/17 07:25 12/18/17 04:10 Labs: Laboratory Results - last 24 hr 12/17/17 12/17/17 12/17/17 15:00 15:00 15:00 WBC 2.7 L D RBC 3.51 L Hgb 11.0 L Hct 33.1 L MCV 94.5 MCH 31.4 H MCHC 33.2 RDW 17.4 H Plt Count 32 L D MPV 10.2 Neut % (Auto) 67.0 Lymph % (Auto) 15.5 L [place] % (Auto) 15.9 H Eos % (Auto) 0.7 Baso % (Auto) 0.9 Neut # (Auto) 1.8 Lymph # (Auto) 0.4 L [place] # (Auto) 0.4 Eos # (Auto) 0.0 Baso # (Auto) 0.0 PT INR APTT Sodium 136 Potassium 3.4 L Chloride 102 Carbon Dioxide 25 Anion Gap 12 BUN 6 L Creatinine 0.4 L Est GFR ( Amer) > 60 Est GFR (Non-Af Amer) > 60 Random Glucose 106 H Calcium 8.9 Total Bilirubin 4.2 H AST 118 H D ALT 43 Alkaline Phosphatase 129 H Total Protein 8.6 H Albumin 3.8 Globulin 4.8 H Albumin/Globulin Ratio 0.8 L Lipase 259 Urine Color Urine Clarity Urine pH Ur Specific [place] Urine Protein Urine Glucose (UA) Urine Ketones Urine Blood Urine Nitrate Urine Bilirubin Urine Urobilinogen Ur Leukocyte Esterase Urine RBC (Auto) Urine Microscopic WBC Ur Squamous Epith Cells Urine Bacteria Hyaline Casts Stool Occult Blood Urine Opiates Screen Urine Methadone Screen Ur Barbiturates Screen Ur Phencyclidine Scrn Ur Amphetamines Screen U Benzodiazepines Scrn U Oth Cocaine Metabols U Cannabinoids Screen Alcohol, Quantitative < 10 Blood Type O POSITIVE Antibody Screen Negative BBK History Checked Patient has bt 12/17/17 12/17/17 12/17/17 15:00 15:00 16:08 WBC RBC Hgb Hct MCV MCH MCHC RDW Plt Count MPV Neut % (Auto) Lymph % (Auto) [place] % (Auto) Eos % (Auto) Baso % (Auto) Neut # (Auto) Lymph # (Auto) [place] # (Auto) Eos # (Auto) Baso # (Auto) PT 16.2 H INR 1.5 APTT 41.8 H Sodium Potassium Chloride Carbon Dioxide Anion Gap BUN Creatinine Est GFR ( Amer) Est GFR (Non-Af Amer) Random Glucose Calcium Total Bilirubin AST ALT Alkaline Phosphatase Total Protein Albumin Globulin Albumin/Globulin Ratio Lipase Urine Color Cecilia Urine Clarity Slighty-cloudy Urine pH 6.0 Ur Specific [place] 1.027 Urine Protein 100 Urine Glucose (UA) Neg Urine Ketones 20 Urine Blood Small Urine Nitrate Negative Urine Bilirubin Small Urine Urobilinogen 4.0 H Ur Leukocyte Esterase Neg Urine RBC (Auto) 7 H Urine Microscopic WBC 2 Ur Squamous Epith Cells 11 H Urine Bacteria Occ H Hyaline Casts 0-2 Stool Occult Blood Positive H Urine Opiates Screen Negative Urine Methadone Screen Negative Ur Barbiturates Screen Negative Ur Phencyclidine Scrn Negative Ur Amphetamines Screen Negative U Benzodiazepines Scrn Negative U Oth Cocaine Metabols Negative U Cannabinoids Screen Negative Alcohol, Quantitative Blood Type Antibody Screen BBK History Checked 12/18/17 04:10 WBC RBC Hgb Hct MCV MCH MCHC RDW Plt Count MPV Neut % (Auto) Lymph % (Auto) [place] % (Auto) Eos % (Auto) Baso % (Auto) Neut # (Auto) Lymph # (Auto) [place] # (Auto) Eos # (Auto) Baso # (Auto) PT INR APTT Sodium 136 Potassium 4.1 Chloride 106 Carbon Dioxide 22 Anion Gap 12 BUN 6 L Creatinine 0.4 L Est GFR ( Amer) > 60 Est GFR (Non-Af Amer) > 60 Random Glucose 83 Calcium 8.3 L Total Bilirubin 3.4 H AST 96 H ALT 36 Alkaline Phosphatase 82 Total Protein 7.6 Albumin 3.3 L Globulin 4.3 H Albumin/Globulin Ratio 0.8 L Lipase Urine Color Urine Clarity Urine pH Ur Specific [place] Urine Protein Urine Glucose (UA) Urine Ketones Urine Blood Urine Nitrate Urine Bilirubin Urine Urobilinogen Ur Leukocyte Esterase Urine RBC (Auto) Urine Microscopic WBC Ur Squamous Epith Cells Urine Bacteria Hyaline Casts Stool Occult Blood Urine Opiates Screen Urine Methadone Screen Ur Barbiturates Screen Ur Phencyclidine Scrn Ur Amphetamines Screen U Benzodiazepines Scrn U Oth Cocaine Metabols U Cannabinoids Screen Alcohol, Quantitative Blood Type Antibody Screen BBK History Checked Assessment & Plan - Assessment and Plan (Free Text) Assessment: 47F with history of etoh cirrhosis presenting with BRBPR likely due to hemorrhoids or small diverticular bleed #Acute on chronic anemia - Blood loss from Lower GI likely hemorrhoid or mild diverticular bleed - resolved. #Alcoholic cirrhosis - MELD 16. compensated with diuretics and beta wali. #Diverticulosis #Asymptomatic cholelithiasis #Alcohol use disorder PLAN -Ok to advance diet to altered hepatic, restricted Na, fluid. -No need for emergent EGD, CSPY. -Needs close follow up with primary and make appointment with [facility] for outpt EGD/CSPY. -Avoid alcohol. Recommended AA. -She is doing well on outpt diuretics, continue. -Continue beta wali -Folic acid and Vit B12 -Start stool softener. Avoid constipation, recommend miralax as outpt. -Recheck Hb this afternoon. If she continues to be asymptomatic and Hb stable, can be discharged from GI perspective. - Date & Time Date: 12/18/17 Time: 07:36 <Lorenzo Zamora - Last Filed: 12/18/17 12:17> Meds - Medications Medications: Current Medications Acetaminophen (Tylenol 325mg Tab) 650 mg PO Q6 PRN PRN Reason: Fever >100.4 F Amlodipine Besylate (Norvasc) 5 mg PO DAILY [facility] Last Admin: 12/18/17 08:24 Dose: 5 mg Cyanocobalamin (Vitamin B12) 500 mcg PO BID [facility] Last Admin: 12/18/17 11:08 Dose: 500 mcg Docusate Sodium (Colace) 200 mg PO DAILY [facility] Last Admin: 12/18/17 08:29 Dose: 200 mg Escitalopram Oxalate (Lexapro) 10 mg PO DAILY [facility] Last Admin: 12/18/17 08:24 Dose: 10 mg Folic Acid (Folic Acid) 1 mg PO DAILY [facility] Last Admin: 12/18/17 11:08 Dose: 1 mg Furosemide (Lasix) 20 mg PO DAILY [facility] Last Admin: 12/18/17 08:24 Dose: 20 mg Lorazepam (Ativan) 1 mg IVPB Q6 PRN PRN Reason: Agitation Morphine Sulfate (Morphine) 2 mg IVP Q6 PRN PRN Reason: Pain, severe (8-10) Ondansetron HCl (Zofran Inj) 4 mg IVP Q6 PRN PRN Reason: Nausea/Vomiting Oxycodone/Acetaminophen (Percocet 5/325 Mg Tab) 1 tab PO Q6 [facility] Stop: 12/20/17 22:01 Last Admin: 12/18/17 10:45 Dose: Not Given Pantoprazole Sodium (Protonix Inj) 40 mg IVP DAILY [facility] Last Admin: 12/18/17 08:25 Dose: 40 mg Propranolol HCl (Inderal) 10 mg PO TID [facility] Last Admin: 12/18/17 08:25 Dose: 10 mg Spironolactone (Aldactone) 25 mg PO DAILY [facility] Last Admin: 12/18/17 08:24 Dose: 25 mg Results - Vital Signs Recent Vital Signs: Last Vital Signs Temp 98.7 F 12/18/17 09:00 Pulse 84 12/18/17 09:00 Resp 20 12/18/17 09:00 BP 149/90 12/18/17 09:00 Pulse Ox 98 12/18/17 09:00 - Labs Result Diagrams: 12/18/17 07:25 12/18/17 04:10 Labs: Laboratory Results - last 24 hr 12/17/17 12/17/17 12/17/17 15:00 15:00 15:00 WBC 2.7 L D RBC 3.51 L Hgb 11.0 L Hct 33.1 L MCV 94.5 MCH 31.4 H MCHC 33.2 RDW 17.4 H Plt Count 32 L D MPV 10.2 Neut % (Auto) 67.0 Lymph % (Auto) 15.5 L [place] % (Auto) 15.9 H Eos % (Auto) 0.7 Baso % (Auto) 0.9 Neut # (Auto) 1.8 Lymph # (Auto) 0.4 L [place] # (Auto) 0.4 Eos # (Auto) 0.0 Baso # (Auto) 0.0 PT INR APTT Sodium 136 Potassium 3.4 L Chloride 102 Carbon Dioxide 25 Anion Gap 12 BUN 6 L Creatinine 0.4 L Est GFR ( Amer) > 60 Est GFR (Non-Af Amer) > 60 Random Glucose 106 H Calcium 8.9 Total Bilirubin 4.2 H AST 118 H D ALT 43 Alkaline Phosphatase 129 H Total Protein 8.6 H Albumin 3.8 Globulin 4.8 H Albumin/Globulin Ratio 0.8 L Lipase 259 Serum HCG, Qual Negative Urine Color Urine Clarity Urine pH Ur Specific [place] Urine Protein Urine Glucose (UA) Urine Ketones Urine Blood Urine Nitrate Urine Bilirubin Urine Urobilinogen Ur Leukocyte Esterase Urine RBC (Auto) Urine Microscopic WBC Ur Squamous Epith Cells Urine Bacteria Hyaline Casts Stool Occult Blood Urine Opiates Screen Urine Methadone Screen Ur Barbiturates Screen Ur Phencyclidine Scrn Ur Amphetamines Screen U Benzodiazepines Scrn U Oth Cocaine Metabols U Cannabinoids Screen Alcohol, Quantitative < 10 Blood Type O POSITIVE Antibody Screen Negative BBK History Checked Patient has bt 12/17/17 12/17/17 12/17/17 15:00 15:00 16:08 WBC RBC Hgb Hct MCV MCH MCHC RDW Plt Count MPV Neut % (Auto) Lymph % (Auto) [place] % (Auto) Eos % (Auto) Baso % (Auto) Neut # (Auto) Lymph # (Auto) [place] # (Auto) Eos # (Auto) Baso # (Auto) PT 16.2 H INR 1.5 APTT 41.8 H Sodium Potassium Chloride Carbon Dioxide Anion Gap BUN Creatinine Est GFR ( Amer) Est GFR (Non-Af Amer) Random Glucose Calcium Total Bilirubin AST ALT Alkaline Phosphatase Total Protein Albumin Globulin Albumin/Globulin Ratio Lipase Serum HCG, Qual Urine Color Cecilia Urine Clarity Slighty-cloudy Urine pH 6.0 Ur Specific [place] 1.027 Urine Protein 100 Urine Glucose (UA) Neg Urine Ketones 20 Urine Blood Small Urine Nitrate Negative Urine Bilirubin Small Urine Urobilinogen 4.0 H Ur Leukocyte Esterase Neg Urine RBC (Auto) 7 H Urine Microscopic WBC 2 Ur Squamous Epith Cells 11 H Urine Bacteria Occ H Hyaline Casts 0-2 Stool Occult Blood Positive H Urine Opiates Screen Negative Urine Methadone Screen Negative Ur Barbiturates Screen Negative Ur Phencyclidine Scrn Negative Ur Amphetamines Screen Negative U Benzodiazepines Scrn Negative U Oth Cocaine Metabols Negative U Cannabinoids Screen Negative Alcohol, Quantitative Blood Type Antibody Screen BBK History Checked 12/18/17 12/18/17 04:10 07:25 WBC 3.4 L RBC 3.17 L Hgb 10.1 L Hct 30.6 L MCV 96.3 MCH 31.9 H MCHC 33.1 RDW 17.6 H Plt Count 37 L MPV Neut % (Auto) Lymph % (Auto) [place] % (Auto) Eos % (Auto) Baso % (Auto) Neut # (Auto) Lymph # (Auto) [place] # (Auto) Eos # (Auto) Baso # (Auto) PT INR APTT Sodium 136 Potassium 4.1 Chloride 106 Carbon Dioxide 22 Anion Gap 12 BUN 6 L Creatinine 0.4 L Est GFR ( Amer) > 60 Est GFR (Non-Af Amer) > 60 Random Glucose 83 Calcium 8.3 L Total Bilirubin 3.4 H AST 96 H ALT 36 Alkaline Phosphatase 82 Total Protein 7.6 Albumin 3.3 L Globulin 4.3 H Albumin/Globulin Ratio 0.8 L Lipase Serum HCG, Qual Urine Color Urine Clarity Urine pH Ur Specific [place] Urine Protein Urine Glucose (UA) Urine Ketones Urine Blood Urine Nitrate Urine Bilirubin Urine Urobilinogen Ur Leukocyte Esterase Urine RBC (Auto) Urine Microscopic WBC Ur Squamous Epith Cells Urine Bacteria Hyaline Casts Stool Occult Blood Urine Opiates Screen Urine Methadone Screen Ur Barbiturates Screen Ur Phencyclidine Scrn Ur Amphetamines Screen U Benzodiazepines Scrn U Oth Cocaine Metabols U Cannabinoids Screen Alcohol, Quantitative Blood Type Antibody Screen BBK History Checked Attending/Attestation - Attestation I have personally seen and examined this patient.: Yes I have fully participated in the care of the patient.: Yes I have reviewed all pertinent clinical information: Yes Notes (Text): 12/18/17 12:13 This is a 47 yr old F with history of Alcoholic cirrhosis and alcohol abuse with numerous admissions in the past with current MELD score of 16 admitted yesterday with alleged history of rectal bleeding which has resolved with brown stool now. Hb at baseline. Last paracentesis for ascites was in 2016 of 11 litres. No s/s of acute GI bleeding. Can start low salt diet. Stool softeners and vitamin supplement. Needs outpatient follow up for EGD/ colonoscopy. Alcohol cessation reiterated. Thank you for letting us participate in the care of your patient
[2017-12-18 07:40] LABS: HEMOGLOBIN 10.1 g/dL (12.0-16.0); MEAN CELL VOLUME 96.3 fl (81.0-99.0); MEAN CORPUSCULAR HEMOGLOBIN 31.9 pg (27.0-31.0); MEAN CORPUSCULAR HGB CONC 33.1 g/dL (33.0-37.0); RBC 3.17 Mil/uL (3.80-5.20); RED CELL DISTRIBUTION WIDTH 17.6 % (11.5-14.5); WHITE BLOOD COUNT 3.4 K/uL (4.8-10.8)
--- NOTE | 2017-12-18 07:49 | CP.PCM.PN ---
Objective - Vital Signs/Intake and Output Vital Signs (last 24 hours): Temp Pulse Resp BP Pulse Ox 98.8 F 62 16 144/90 97 12/18/17 04:44 12/18/17 04:44 12/18/17 04:44 12/18/17 04:44 12/18/17 04:44 - Medications Medications: Current Medications Acetaminophen (Tylenol 325mg Tab) 650 mg PO Q6 PRN PRN Reason: Fever >100.4 F Amlodipine Besylate (Norvasc) 5 mg PO DAILY [facility] Escitalopram Oxalate (Lexapro) 10 mg PO DAILY [facility] Furosemide (Lasix) 20 mg PO DAILY [facility] Lorazepam (Ativan) 1 mg IVPB Q6 PRN PRN Reason: Agitation Morphine Sulfate (Morphine) 2 mg IVP Q6 PRN PRN Reason: Pain, severe (8-10) Ondansetron HCl (Zofran Inj) 4 mg IVP Q6 PRN PRN Reason: Nausea/Vomiting Oxycodone/Acetaminophen (Percocet 5/325 Mg Tab) 1 tab PO Q6 [facility] Stop: 12/20/17 22:01 Last Admin: 12/18/17 04:02 Dose: Not Given Pantoprazole Sodium (Protonix Inj) 40 mg IVP DAILY [facility] Propranolol HCl (Inderal) 10 mg PO TID [facility] Last Admin: 12/17/17 18:21 Dose: 10 mg Spironolactone (Aldactone) 25 mg PO DAILY [facility] Last Admin: 12/17/17 18:21 Dose: 25 mg - Labs Labs: 12/18/17 07:25 12/18/17 04:10 PT 16.2 Seconds (9.8-13.1) H 12/17/17 15:00 INR 1.5 12/17/17 15:00 APTT 41.8 Seconds (25.6-37.1) H 12/17/17 15:00
--- NOTE | 2017-12-18 08:06 | CARD ---
APPROVED REPORT Date of service: 12/17/2017 <Conclusion> Normal sinus rhythm Normal ECG
[2017-12-18 08:35] VITALS: O2SAT 98
[2017-12-18] MEDS ORDERED: CYANOCOBALAMIN 500 MCG TAB PO SCH (09:00)
[2017-12-18 12:49] LABS: HEMOGLOBIN 10.7 g/dL (12.0-16.0); MEAN CELL VOLUME 94.5 fl (81.0-99.0); MEAN CORPUSCULAR HEMOGLOBIN 31.4 pg (27.0-31.0); MEAN CORPUSCULAR HGB CONC 33.3 g/dL (33.0-37.0); RBC 3.41 Mil/uL (3.80-5.20); RED CELL DISTRIBUTION WIDTH 17.5 % (11.5-14.5); WHITE BLOOD COUNT 4.2 K/uL (4.8-10.8)
[2017-12-18 13:32] VITALS: BP 135/83; PULSE 70; RESP 18; TEMP 98.2
--- NOTE | 2017-12-18 14:04 | CP.PCM.DIS ---
Provider - Provider Date of Admission: 12/17/17 16:49 Attending physician: Perico Means MD Consults: GI: Dr Zamora Time Spent in preparation of Discharge (in minutes): 30 Diagnosis - Discharge Diagnosis (1) GI bleed Status: Resolved (2) Hypokalemia Status: Resolved (3) Cirrhosis Status: Chronic (4) Hypertension Status: Chronic (5) Alcohol abuse Status: Chronic Hospital Course - Lab Results Lab Results: Most Recent Lab Values WBC 4.2 K/uL (4.8-10.8) L 12/18/17 12:15 RBC 3.41 Mil/uL (3.80-5.20) L 12/18/17 12:15 Hgb 10.7 g/dL (12.0-16.0) L 12/18/17 12:15 Hct 32.2 % (34.0-47.0) L 12/18/17 12:15 MCV 94.5 fl (81.0-99.0) 12/18/17 12:15 MCH 31.4 pg (27.0-31.0) H 12/18/17 12:15 MCHC 33.3 g/dL (33.0-37.0) 12/18/17 12:15 RDW 17.5 % (11.5-14.5) H 12/18/17 12:15 Plt Count 42 K/uL (130-400) L 12/18/17 12:15 MPV 10.2 fl (7.2-11.7) 12/17/17 15:00 Neut % (Auto) 67.0 % (50.0-75.0) 12/17/17 15:00 Lymph % (Auto) 15.5 % (20.0-40.0) L 12/17/17 15:00 [place] % (Auto) 15.9 % (0.0-10.0) H 12/17/17 15:00 Eos % (Auto) 0.7 % (0.0-4.0) 12/17/17 15:00 Baso % (Auto) 0.9 % (0.0-2.0) 12/17/17 15:00 Neut # (Auto) 1.8 K/uL (1.8-7.0) 12/17/17 15:00 Lymph # (Auto) 0.4 K/uL (1.0-4.3) L 12/17/17 15:00 [place] # (Auto) 0.4 K/uL (0.0-0.8) 12/17/17 15:00 Eos # (Auto) 0.0 K/uL (0.0-0.7) 12/17/17 15:00 Baso # (Auto) 0.0 K/uL (0.0-0.2) 12/17/17 15:00 PT 16.2 Seconds (9.8-13.1) H 12/17/17 15:00 INR 1.5 12/17/17 15:00 APTT 41.8 Seconds (25.6-37.1) H 12/17/17 15:00 Sodium 136 mmol/l (132-148) 12/18/17 04:10 Potassium 4.1 MMOL/L (3.6-5.0) 12/18/17 04:10 Chloride 106 mmol/L (98-107) 12/18/17 04:10 Carbon Dioxide 22 mmol/L (22-30) 12/18/17 04:10 Anion Gap 12 (10-20) 12/18/17 04:10 BUN 6 mg/dl (7-17) L 12/18/17 04:10 Creatinine 0.4 mg/dl (0.7-1.2) L 12/18/17 04:10 Est GFR ( Amer) > 60 12/18/17 04:10 Est GFR (Non-Af Amer) > 60 12/18/17 04:10 Random Glucose 83 mg/dL (65-105) 12/18/17 04:10 Calcium 8.3 mg/dL (8.4-10.2) L 12/18/17 04:10 Total Bilirubin 3.4 mg/dl (0.2-1.3) H 12/18/17 04:10 AST 96 U/L (14-36) H 12/18/17 04:10 ALT 36 U/L (9-52) 12/18/17 04:10 Alkaline Phosphatase 82 U/L (38-126) 12/18/17 04:10 Total Protein 7.6 G/DL (6.3-8.2) 12/18/17 04:10 Albumin 3.3 g/dL (3.5-5.0) L 12/18/17 04:10 Globulin 4.3 gm/dL (2.2-3.9) H 12/18/17 04:10 Albumin/Globulin Ratio 0.8 (1.0-2.1) L 12/18/17 04:10 Lipase 259 U/L (23-300) 12/17/17 15:00 Serum HCG, Qual Negative (NEGATIVE) 12/17/17 15:00 Urine Color Cecilia (YELLOW) 12/17/17 15:00 Urine Clarity Slighty-cloudy (Clear) 12/17/17 15:00 Urine pH 6.0 (5.0-8.0) 12/17/17 15:00 Ur Specific [place] 1.027 (1.003-1.030) 12/17/17 15:00 Urine Protein 100 mg/dL (NEGATIVE) 12/17/17 15:00 Urine Glucose (UA) Neg mg/dL (Normal) 12/17/17 15:00 Urine Ketones 20 mg/dL (NEGATIVE) 12/17/17 15:00 Urine Blood Small (NEGATIVE) 12/17/17 15:00 Urine Nitrate Negative (NEGATIVE) 12/17/17 15:00 Urine Bilirubin Small (NEGATIVE) 12/17/17 15:00 Urine Urobilinogen 4.0 mg/dL (0.2-1.0) H 12/17/17 15:00 Ur Leukocyte Esterase Neg Elian/uL (Negative) 12/17/17 15:00 Urine RBC (Auto) 7 /hpf (0-3) H 12/17/17 15:00 Urine Microscopic WBC 2 /hpf (0-5) 12/17/17 15:00 Ur Squamous Epith Cells 11 /hpf (0-5) H 12/17/17 15:00 Urine Bacteria Occ (<OCC) H 12/17/17 15:00 Hyaline Casts 0-2 /hpf (0-2) 12/17/17 15:00 Stool Occult Blood Positive (NEGATIVE) H 12/17/17 15:00 Urine Opiates Screen Negative (NEGATIVE) 12/17/17 16:08 Urine Methadone Screen Negative (NEGATIVE) 12/17/17 16:08 Ur Barbiturates Screen Negative (NEGATIVE) 12/17/17 16:08 Ur Phencyclidine Scrn Negative (NEGATIVE) 12/17/17 16:08 Ur Amphetamines Screen Negative (NEGATIVE) 12/17/17 16:08 U Benzodiazepines Scrn Negative (NEGATIVE) 12/17/17 16:08 U Oth Cocaine Metabols Negative (NEGATIVE) 12/17/17 16:08 U Cannabinoids Screen Negative (NEGATIVE) 12/17/17 16:08 Alcohol, Quantitative < 10 mg/dl (0-10) 12/17/17 15:00 Blood Type O POSITIVE 12/17/17 15:00 Antibody Screen Negative 12/17/17 15:00 BBK History Checked Patient has bt 12/17/17 15:00 - Hospital Course Hospital Course: 47 years old female with hx of Hepatitis C, HTN, depression, Pancytopenia, Liver Cirrhosis and Ascites (last paracenthesis February [id number] with removal of 11 L of ascitic fluid), Esophageal Varices and ETOH abuse was admitted due to bloody stool x1 day. Patient also reported 2 episodes on nbnb vomiting in the past week. Patient denies ETOh use currently. During this admission she was found to have low K that was resolved after repleted with K 20meq once and low platelet level (32) but no signs of active bleeding. After review of her medical records,from prior admissions appears this to be her baseline so no further testing for treatment is necessary. Abdominal US: showed Cholelithiasis with no ultrasound evidence of acute cholecystitis. Probable fatty infiltration of the liver, no hydronephrosis. Normal EKG. GI on board recommends stool softeners, vitamin supplement and outpatient follow up for EGD/ colonoscopy. H/ H stable, tolerating PO well, no signs of active bleeding hemodynamically stable cleared for discharge patient home. Prescriptions for lasix, spironolactone, propranolol and protonix sent to her pharmacy, pt provided with appt with Dr Barba at [facility] on 12/23/17. Patient to make appt with GI. Instructions of low salt diet, avoid alcohol consumption, and ER precautions. Discharge Exam - Head Exam Head Exam: NORMAL INSPECTION - Eye Exam Eye Exam: Normal appearance - ENT Exam ENT Exam: Mucous Membranes Moist - Respiratory Exam Respiratory Exam: Clear to PA & Lateral, NORMAL BREATHING PATTERN. absent: Rales, Rhonchi - Cardiovascular Exam Cardiovascular Exam: REGULAR RHYTHM. absent: Tachycardia - GI/Abdominal Exam GI & Abdominal Exam: Normal Bowel Sounds, Soft. absent: Distended, Tenderness - Neurological Exam Neurological exam: Alert, Oriented x3 - Psychiatric Exam Psychiatric exam: Normal Affect - Skin Skin Exam: Dry, Warm Discharge Plan - Discharge Medications Prescriptions: Furosemide [Lasix] 10 mg PO DAILY 30 Days #30 tab Pantoprazole Sodium [Protonix] 40 mg PO DAILY 30 Days #30 tablet. Propranolol [Inderal] 10 mg PO TID 30 Days #60 tab Spironolactone [Aldactone] 12.5 mg PO DAILY 30 Days #30 tab - Follow Up Plan Condition: FAIR Disposition: HOME/ ROUTINE Instructions: Gastrointestinal Bleeding (DC), Cirrhosis (DC) Additional Instructions: F/U with PCP in [facility] in 1-2 days Needs new referral to GI ER precautions reviewed Referrals: [facility] [place] [Outside] Lorenzo Zamora MD [Medical Doctor] -
== END 2017-12-18 14:45 | disposition home or self-care (01) ==
LOC: H.ER 14:48 → H.ERHOLD 16:49 → INTOOBSV 16:49 → H.TEL 18:41
PROVIDERS: ADMIT Hospitalist; ATTEND Hospitalist
DX: K92.2 Gastrointestinal hemorrhage, unspecified (principal); K70.30 Alcoholic cirrhosis of liver without ascites; F41.9 Anxiety disorder, unspecified; J45.909 Unspecified asthma, uncomplicated; F32.9 Major depressive disorder, single episode, unspecified; K29.70 Gastritis, unspecified, without bleeding; I10 Essential (primary) hypertension; K76.0 Fatty (change of) liver, not elsewhere classified; E87.6 Hypokalemia; K80.20 Calculus of gallbladder without cholecystitis without obstruction; F10.10 Alcohol abuse, uncomplicated; Y90.0 Blood alcohol level of less than 20 mg/100 ml; B19.20 Unspecified viral hepatitis C without hepatic coma; D61.818 Other pancytopenia; D62 Acute posthemorrhagic anemia; K57.90 Diverticulosis of intestine, part unspecified, without perforation or abscess without bleeding
CPT/HCPCS: 36415; 76705; 80053; 80320; 80324; 80345; 80346; 80349; 80353; 80358; 80361; 81003; 83690; 83992; 84703; 85025; 85027; 85610; 85730; 86850; 86900; 93005; 96374; 99285; C9113; G0328; G0378; J2060; J3411; J7030

== ENCOUNTER 2018-03-28 10:22 | Inpatient (IN) | payer MEDICAID, SELFPAY ==
[2018-03-28 10:23] VITALS: BMI 29.0
[2018-03-28 11:38] LABS: VENOUS BLOOD GAS BASE EXCESS -0.9 mmol/L (0.0-2.0); VENOUS BLOOD GAS PCO2 37 mmHg (40-60); VENOUS BLOOD GAS PO2 21 mm/Hg (30-55); VENOUS BLOOD PH 7.41 (7.32-7.43)
[2018-03-28 11:47] LABS: BASO # 0.1 K/uL (0.0-0.2); BASO % 1.2 % (0.0-2.0); EOS # 0.1 K/uL (0.0-0.7); EOS % 1.3 % (0.0-4.0); HEMOGLOBIN 10.1 g/dL (12.0-16.0); INR 2.3; LYMPH # 1.3 K/uL (1.0-4.3); LYMPH % 16.4 % (20.0-40.0); MEAN CELL VOLUME 99.9 fl (81.0-99.0); MEAN CORPUSCULAR HEMOGLOBIN 31.4 pg (27.0-31.0); MEAN CORPUSCULAR HGB CONC 31.4 g/dL (33.0-37.0); MEAN PLATELET VOLUME 11.2 fl (7.2-11.7); MONO # 0.9 K/uL (0.0-0.8); MONO % 12.1 % (0.0-10.0); NEUT # 5.3 K/uL (1.8-7.0); NRBC % 0.2 % (0.0-0.0); PROTHROMBIN TIME 26.1 Seconds (9.8-13.1); RBC 3.23 Mil/uL (3.80-5.20); RED CELL DISTRIBUTION WIDTH 22.8 % (11.5-14.5); WHITE BLOOD COUNT 7.6 K/uL (4.8-10.8)
[2018-03-28 11:50] LABS: PARTIAL THROMBOPLASTIN TIME 38.8 Seconds (25.6-37.1)
[2018-03-28 11:54] LABS: ALB/GLOB RATIO 0.6 (1.0-2.1); ALBUMIN 2.8 g/dL (3.5-5.0); ALT/SGPT 51 U/L (9-52); AST/SGOT 137 U/L (14-36); BLOOD UREA NITROGEN 7 mg/dl (7-17); GFR NON-AFRICAN AMERICAN > 60; LIPASE 283 U/L (23-300)
[2018-03-28 12:02] LABS: SQUAMOUS EPITHIAL 3 /hpf (0-5); URINE BACTERIA RARE (<OCC); URINE BILIRUBIN MODERATE (NEGATIVE); URINE BLOOD NEGATIVE (NEGATIVE); URINE CLARITY SLIGHTY-CLOUDY (Clear); URINE COLOR AMBER (YELLOW); URINE GLUCOSE (UA) NEG (NEGATIVE); URINE LEUKOCYTE ESTERASE NEG Leu/uL (Negative); URINE PROTEIN 30 mg/dL (NEGATIVE)
--- NOTE | 2018-03-28 12:46 | ED PDOC ---
HPI: Abdomen Time Seen by Provider: 03/28/18 10:36 Chief Complaint (Nursing): Abdominal Pain Chief Complaint (Provider): Abdominal Pain History Per: [employer] ([id number]) Additional Complaint(s): Agata Storm is a 48 year old female with a past medical history of liver cirrhosis, hypertension, and asthma, who presents to the emergency department complaining of worsening abdominal swelling, onset x1 month. Patient states that at the onset of right flank pain started yesterday. She also reports that she has had seven paracentesis before with the last one x2 years ago. Patient also states she had pyelonephritis that was caused by E. Coli. She denies any shortness of breath, nausea, dysuria, sick contact, or change in medications or diet. PMD: RABIA Cobb Past Medical History Reviewed: Historical Data, Nursing Documentation, Vital Signs Vital Signs: Last Vital Signs Temp 98.5 F 03/28/18 10:27 Pulse 65 03/28/18 10:27 Resp 18 03/28/18 10:27 BP 166/95 H 03/28/18 10:27 Pulse Ox 100 03/28/18 10:27 - Medical History PMH: Anxiety, Asthma, Depression, Gastritis, HTN, Pancreatitis Denies: Alzheimer's Disease, Anemia, Arthritis, Atrial Fibrillation, Bipolar Disorder, Bronchitis, CAD, Cardia Arrhythmia, CHF, COPD, Crohn's Disease, Dementia, Diabetes, Diverticulitis, Emphysema, Fractures, Gall Bladder Disease, Hepatitis, HIV, Hypercholesterolemia, Hyperthyroidism, Hypothyroidism, Kidney Stones, Migraine, Mitral Valve Prolapse, Multiple Sclerosis, Osteoporosis, Par anoia, Parkinson's Disease, Peripheral Edema, Pneumonia, Post Traumatic Stress Disorder, Pulmonary Embolism, Chronic Kidney Disease, Rheumatoid Arthritis, Schizophrenia, Seizures, Sickle Cell Disease, Sexually Transmitted Disease, Sleep Apnea, TIA - Surgical History Surgical History: Endoscopy, Denies: Appendectomy, CABG, Carotid Endarterectomy, Cholecystectomy, Coronary Stent, Pacemaker, Tonsillectomy - Family History Family History: States: Unknown Family Hx - Immunization History Hx Tetanus Toxoid Vaccination: No Hx Influenza Vaccination: No Hx Pneumococcal Vaccination: No - Home Medications Home Medications: Ambulatory Orders Medication Instructions Recorded Escitalopram [Lexapro] 10 mg PO DAILY 30 Days #30 tab 07/22/17 Vitamin B Complex/Vit C/Folic 1 tab PO DAILY 30 Days #30 tab 07/22/17 [Nephro-Kenneth] amLODIPine [Norvasc] 5 mg PO DAILY 15 Days #15 tab 07/22/17 traZODone [Desyrel] 100 mg PO HS 30 Days #30 tab 07/22/17 Furosemide [Lasix] 10 mg PO DAILY 30 Days #30 tab 12/18/17 Pantoprazole Sodium [Protonix] 40 mg PO DAILY 30 Days #30 12/18/17 tablet. Propranolol [Inderal] 10 mg PO TID 30 Days #60 tab 12/18/17 Spironolactone [Aldactone] 12.5 mg PO DAILY 30 Days #30 tab 12/18/17 - Allergies Allergies/Adverse Reactions: Allergies Allergy/AdvReac Type Severity Reaction Status Date / Time No Known Allergies Allergy Verified 07/18/17 17:14 Review of Systems ROS Statement: Except As Marked, All Systems Reviewed And Found Negative Respiratory: Negative for: Shortness of Breath Gastrointestinal: Positive for: Abdominal Pain (abd swelling), Other (right flank pain). Negative for: Nausea, Vomiting Genitourinary Female: Negative for: Dysuria Physical Exam - Reviewed Nursing Documentation Reviewed: Yes Vital Signs Reviewed: Yes - Physical Exam Appears: Positive for: Non-toxic, No Acute Distress Head Exam: Positive for: ATRAUMATIC, NORMOCEPHALIC Skin: Positive for: Jaundice Eye Exam: Positive for: Other (yellow, jaundice appearing) Neck: Positive for: Normal, Painless ROM, Supple, Decreased ROM Cardiovascular/Chest: Positive for: Regular Rate, Rhythm. Negative for: Murmur Respiratory: Positive for: Normal Breath Sounds. Negative for: Respiratory Distress Gastrointestinal/Abdominal: Positive for: Distended, Other (tense) Back: Positive for: Normal Inspection. Negative for: L CVA Tenderness, R CVA Tenderness, Vertebral Tenderness Extremity: Positive for: Normal ROM. Negative for: Pedal Edema, Deformity Neurologic/Psych: Positive for: Alert, Oriented (x3) - Laboratory Results Result Diagrams: 03/28/18 11:35 03/28/18 11:35 - ECG O2 Sat by Pulse Oximetry: 100 (RA) Pulse Ox Interpretation: Normal Medical Decision Making Medical Decision Making: Time: 11:25 A/P: Work up for exacerbation of liver cirrhosis with ascites and pyelonephritis. Provider will contact family services assistant as patient will follow up with clinic. Plan: --EKG --Ammonia --Chest x-ray 12:26 Spoke with family resident at this time. There is no indication of pyelonephritis. Patient admitted for paracentesis, and waiting to hear back from hospitalist for admission. 12:[address] Saldana at this time. Patient to be admitted under his care at this time. Scribe Attestation: Documented by Eusebio Larson , acting as a scribe for Monique Agee MD. Provider Scribe Attestation: All medical record entries made by the Scribe were at my direction and personally dictated by me. I have reviewed the chart and agree that the record accurately reflects my personal performance of the history, physical exam, medical decision making, and the department course for this patient. I have also personally directed, reviewed, and agree with the discharge instructions and disposition. Disposition - Disposition
[2018-03-28] MEDS ORDERED: Iodixanol 320 MG/ML 100 ML BOTTLE IV ONE (13:16)
[2018-03-28] MEDS ORDERED: Iohexol 300 100 ML IJ ONE (13:17)
[2018-03-28] MEDS ORDERED: Sodium Chloride 0.9% 50 ML IV ONE (13:17)
--- NOTE | 2018-03-28 13:25 | CP.PCM.HP ---
<Cecilio Reaves - Last Filed: 03/28/18 14:11> History of Present Illness - History of Present Illness History of Present Illness: 47 y/o F with PMHx of ETOH abuse, alcoholic liver cirrhosis(Last paracentesis in 2016, Removed 11L fluid), esophageal varices, HTN and depression presents to ED increased abdominal distension and lower back pain. Patient noticed increasing abdominal distension that started 1 month ago, she also went to [facility] clinic 2 week ago when her T. Vasquez was 8.0 with jaundice. Patient was given referral for [facility] but she never followed up. She noticed her abdomen girt h is increasing with associated yellowing of eyes, generalized itching and lower back pain. She also reports dark yellow urine despite drinking a lot of fluids. Tolerating diet well PO. Denies any fever, chills, CP, SOB, abdominal pain, nausea, vomiting, diarrhea or constipation, dysuria, weakness, confusion, hemetemesis or weight loss. ROS: 12 system ROS negative except mentioned above. PMD: Dr. Ponce, [facility] PMHx: Liver Cirrhosis - secondary to Alcohol abuse, Referred to [facility] but did not follow up, Has hx of Ascities (11 L removed in 2016) and Esophageal variceal bleed in 2016(no endoscopy records available) HTN- Well controlled(as per [facility]) Depression- Followed by Dr. Chang, attends [facility] PSHx: C section, Hysterectomy Meds: Ferrous Sulfate 325mg BID, Proponolol 10mg TID, Furosemide 20mg Daily. H/O Aldactone in past but patient denies taking it. 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 Present on Admission - Present on Admission Any Indicators Present on Admission: No History of DVT/PE: No History of Uncontrolled Diabetes: No Urinary Catheter: No Decubitus Ulcer Present: No Review of Systems - EENT Eyes: absent: Change in Vision - Cardiovascular Cardiovascular: absent: Chest Pain, Chest Pain at Rest, Dyspnea, Dyspnea on Exertion - Gastrointestinal Gastrointestinal: absent: Abdominal Pain, Constipation, Diarrhea, Hematemesis, Hematochezia, Nausea, Vomiting - Genitourinary Genitourinary: absent: Change in Urinary Stream - Musculoskeletal Musculoskeletal: absent: Abnormal Gait - Neurological Neurological: absent: Confusion, Headaches, Weakness Past Patient History - Infectious Disease Hx of Infectious Diseases: None - Past Medical History & Family History Past Medical History?: Yes - Past Social History Smoking Status: Never Smoked - CARDIAC Hx Atrial Fibrillation: No Hx Cardia Arrhythmia: No Hx Congestive Heart Failure: No Hx Hypercholesterolemia: No Hx Hypertension: Yes Hx Mitral Valve Prolapse: No Hx Pacemaker: No Hx Peripheral Edema: No - PULMONARY Hx Asthma: Yes Hx Bronchitis: No Hx Chronic Obstructive Pulmonary Disease (COPD): No Hx Emphysema: No Hx Pneumonia: No Hx Pulmonary Embolism: No Hx Sleep Apnea: No - NEUROLOGICAL Hx Alzheimer's Disease: No Hx Dementia: No Hx Migraine: No Hx Multiple Sclerosis: No Hx Parkinson's Disease: No Hx Seizures: No Hx Transient Ischemic Attacks (TIA): No - HEENT Hx HEENT Problems: No - RENAL Hx Chronic Kidney Disease: No Hx Kidney Stones: No - ENDOCRINE/METABOLIC Hx Hyperthyroidism: No Hx Hypothyroidism: No - HEMATOLOGICAL/ONCOLOGICAL Hx Anemia: No Hx Human Immunodeficiency Virus (HIV): No Hx Sickle Cell Disease: No - INTEGUMENTARY Hx Dermatological Problems: No - MUSCULOSKELETAL/RHEUMATOLOGICAL Hx Arthritis: No Hx Fractures: No Hx Osteoporosis: No Hx Rheumatoid Arthritis: No - GASTROINTESTINAL Hx Crohn's Disease: No Hx Diverticulitis: No Hx Gall Bladder Disease: No Hx Gastritis: Yes Hx Pancreatitis: Yes - GENITOURINARY/GYNECOLOGICAL Hx Sexually Transmitted Disorders: No - PSYCHIATRIC Hx Anxiety: Yes Hx Bipolar Disorder: No Hx Depression: Yes Hx Paranoia: No Hx Post Traumatic Stress Disorder: No Hx Schizophrenia: No - SURGICAL HISTORY Hx Appendectomy: No Hx Carotid Endarterectomy: No Hx Cholecystectomy: No Hx Coronary Artery Bypass Graft: No Hx Coronary Stent: No Hx Tonsillectomy: No - ANESTHESIA Hx Anesthesia: Yes Hx Anesthesia Reactions: No Hx Malignant Hyperthermia: No Meds Allergies/Adverse Reactions: Allergies Allergy/AdvReac Type Severity Reaction Status Date / Time No Known Allergies Allergy Verified 07/18/17 17:14 Physical Exam - Constitutional Appears: Non-toxic, No Acute Distress - Head Exam Head Exam: ATRAUMATIC, NORMOCEPHALIC - Eye Exam Eye Exam: EOMI, Normal appearance, Scleral icterus. absent: Conjunctival injection - ENT Exam ENT Exam: Mucous Membranes Moist - Neck Exam Neck exam: Positive for: Full Rom. Negative for: Tenderness - Respiratory Exam Respiratory Exam: Clear to Auscultation Bilateral. absent: Rales, Rhonchi, Wheezes, Respiratory Distress - Cardiovascular Exam Cardiovascular Exam: REGULAR RHYTHM, +S1, +S2. absent: Systolic Murmur - GI/Abdominal Exam GI & Abdominal Exam: Distended, Normal Bowel Sounds, Soft. absent: Tenderness - Extremities Exam Extremities exam: Negative for: calf tenderness, pedal edema, tenderness - Neurological Exam Neurological exam: Alert, Normal Gait, Oriented x3 - Psychiatric Exam Psychiatric exam: Normal Affect, Normal Mood - Skin Skin Exam: Dry, Intact, Normal Color, Warm Results - Vital Signs Recent Vital Signs: Last Vital Signs Temp 98.5 F 03/28/18 10:27 Pulse 65 03/28/18 10:27 Resp 18 03/28/18 10:27 BP 166/95 H 03/28/18 10:27 Pulse Ox 100 03/28/18 12:58 - Labs Result Diagrams: 03/28/18 11:35 03/28/18 11:35 Labs: Laboratory Results - last 24 hr 03/28/18 03/28/18 03/28/18 11:26 11:35 11:35 WBC 7.6 RBC 3.23 L Hgb 10.1 L Hct 32.3 L MCV 99.9 H D MCH 31.4 H MCHC 31.4 L RDW 22.8 H Plt Count 94 L D MPV 11.2 Neut % (Auto) 69.0 Lymph % (Auto) 16.4 L Davie % (Auto) 12.1 H Eos % (Auto) 1.3 Baso % (Auto) 1.2 Neut # (Auto) 5.3 Lymph # (Auto) 1.3 Davie # (Auto) 0.9 H Eos # (Auto) 0.1 Baso # (Auto) 0.1 PT INR APTT pO2 21 L VBG pH 7.41 VBG pCO2 37 L VBG HCO3 22.8 VBG Total CO2 24.6 VBG O2 Sat (Calc) 31.6 L VBG Base Excess -0.9 L VBG Potassium 6.1 H Sodium 130.0 L 134 Chloride 103.0 104 Glucose 89 Lactate 1.5 FiO2 21.0 Potassium 3.9 Carbon Dioxide 23 Anion Gap 11 BUN 7 Creatinine 0.5 L Est GFR ( Amer) > 60 Est GFR (Non-Af Amer) > 60 Random Glucose 95 Calcium 8.0 L Total Bilirubin 6.1 H AST 137 H D ALT 51 Alkaline Phosphatase 112 Total Protein 7.6 Albumin 2.8 L Globulin 4.8 H Albumin/Globulin Ratio 0.6 L Lipase 283 Venous Blood Potassium 6.1 H Urine Color Urine Clarity Urine pH Ur Specific [place] Urine Protein Urine Glucose (UA) Urine Ketones Urine Blood Urine Nitrate Urine Bilirubin Urine Urobilinogen Ur Leukocyte Esterase Urine RBC (Auto) Urine Microscopic WBC Ur Squamous Epith Cells Urine Bacteria 03/28/18 03/28/18 11:35 11:43 WBC RBC Hgb Hct MCV MCH MCHC RDW Plt Count MPV Neut % (Auto) Lymph % (Auto) Davie % (Auto) Eos % (Auto) Baso % (Auto) Neut # (Auto) Lymph # (Auto) Davie # (Auto) Eos # (Auto) Baso # (Auto) PT 26.1 H INR 2.3 APTT 38.8 H pO2 VBG pH VBG pCO2 VBG HCO3 VBG Total CO2 VBG O2 Sat (Calc) VBG Base Excess VBG Potassium Sodium Chloride Glucose Lactate FiO2 Potassium Carbon Dioxide Anion Gap BUN Creatinine Est GFR ( Amer) Est GFR (Non-Af Amer) Random Glucose Calcium Total Bilirubin AST ALT Alkaline Phosphatase Total Protein Albumin Globulin Albumin/Globulin Ratio Lipase Venous Blood Potassium Urine Color Cecilia Urine Clarity Slighty-cloudy Urine pH 5.0 Ur Specific [place] 1.028 Urine Protein 30 Urine Glucose (UA) Neg Urine Ketones Negative Urine Blood Negative Urine Nitrate Negative Urine Bilirubin Moderate Urine Urobilinogen 4.0 H Ur Leukocyte Esterase Neg Urine RBC (Auto) 3 Urine Microscopic WBC 3 Ur Squamous Epith Cells 3 Urine Bacteria Rare Assessment & Plan - Assessment and Plan (Free Text) Assessment: 47 y/o F with PMHx of ETOH abuse, alcoholic liver cirrhosis(Last paracentesis in 2016, Removed 11L fluid), esophageal varices, HTN and depression admitted for worsening ascites. Plan: Ascites, likely 2/2 alcoholic cirrhosis - T vasquez 6.1, Scleral icterus +, abd distension - Start Lasix 20 mg PO daily - Start Aldactone 12.5 mg PO daily - Start Propranolol 10 mg PO TID - F/U Ct abd/pelvis w contrast, Direct vasquez and ammonia. - Possible IR for ascitic tap. Chronic anemia and thrombocytopenia - Likely secondary to cirrhosis - Plt 94, HgB 10.1 - Monitor CBC Abnormal coagulation profile - PT 26.1, PTT 38.8 - Likely secondary to cirrhosis - Monitor coags HTN - Uncontraolled - Continue home medications including Propranolol and Lasix - Monitor vitals H/O alcohol abuse - Heavy drinker 4 years. - Last Drink 2 months ago Diet - Hepatic diet DVT prophylaxis - SCDs Code Status: Full code <[email or web address] D - Last Filed: 03/28/18 14:15> Results - Vital Signs Recent Vital Signs: Last Vital Signs Temp 98.5 F 03/28/18 10:27 Pulse 65 03/28/18 10:27 Resp 18 03/28/18 10:27 BP 166/95 H 03/28/18 10:27 Pulse Ox 100 03/28/18 12:58 - Labs Result Diagrams: 03/28/18 11:35 03/28/18 11:35 Labs: Laboratory Results - last 24 hr 03/28/18 03/28/18 03/28/18 11:26 11:35 11:35 WBC 7.6 RBC 3.23 L Hgb 10.1 L Hct 32.3 L MCV 99.9 H D MCH 31.4 H MCHC 31.4 L RDW 22.8 H Plt Count 94 L D MPV 11.2 Neut % (Auto) 69.0 Lymph % (Auto) 16.4 L Davie % (Auto) 12.1 H Eos % (Auto) 1.3 Baso % (Auto) 1.2 Neut # (Auto) 5.3 Lymph # (Auto) 1.3 Davie # (Auto) 0.9 H Eos # (Auto) 0.1 Baso # (Auto) 0.1 PT INR APTT pO2 21 L VBG pH 7.41 VBG pCO2 37 L VBG HCO3 22.8 VBG Total CO2 24.6 VBG O2 Sat (Calc) 31.6 L VBG Base Excess -0.9 L VBG Potassium 6.1 H Sodium 130.0 L 134 Chloride 103.0 104 Glucose 89 Lactate 1.5 FiO2 21.0 Potassium 3.9 Carbon Dioxide 23 Anion Gap 11 BUN 7 Creatinine 0.5 L Est GFR ( Amer) > 60 Est GFR (Non-Af Amer) > 60 Random Glucose 95 Calcium 8.0 L Total Bilirubin 6.1 H AST 137 H D ALT 51 Alkaline Phosphatase 112 Total Protein 7.6 Albumin 2.8 L Globulin 4.8 H Albumin/Globulin Ratio 0.6 L Lipase 283 Venous Blood Potassium 6.1 H Urine Color Urine Clarity Urine pH Ur Specific [place] Urine Protein Urine Glucose (UA) Urine Ketones Urine Blood Urine Nitrate Urine Bilirubin Urine Urobilinogen Ur Leukocyte Esterase Urine RBC (Auto) Urine Microscopic WBC Ur Squamous Epith Cells Urine Bacteria 03/28/18 03/28/18 11:35 11:43 WBC RBC Hgb Hct MCV MCH MCHC RDW Plt Count MPV Neut % (Auto) Lymph % (Auto) Davie % (Auto) Eos % (Auto) Baso % (Auto) Neut # (Auto) Lymph # (Auto) Davie # (Auto) Eos # (Auto) Baso # (Auto) PT 26.1 H INR 2.3 APTT 38.8 H pO2 VBG pH VBG pCO2 VBG HCO3 VBG Total CO2 VBG O2 Sat (Calc) VBG Base Excess VBG Potassium Sodium Chloride Glucose Lactate FiO2 Potassium Carbon Dioxide Anion Gap BUN Creatinine Est GFR ( Amer) Est GFR (Non-Af Amer) Random Glucose Calcium Total Bilirubin AST ALT Alkaline Phosphatase Total Protein Albumin Globulin Albumin/Globulin Ratio Lipase Venous Blood Potassium Urine Color Cecilia Urine Clarity Slighty-cloudy Urine pH 5.0 Ur Specific [place] 1.028 Urine Protein 30 Urine Glucose (UA) Neg Urine Ketones Negative Urine Blood Negative Urine Nitrate Negative Urine Bilirubin Moderate Urine Urobilinogen 4.0 H Ur Leukocyte Esterase Neg Urine RBC (Auto) 3 Urine Microscopic WBC 3 Ur Squamous Epith Cells 3 Urine Bacteria Rare Attending/Attestation - Attestation I have personally seen and examined this patient.: Yes I have fully participated in the care of the patient.: Yes I have reviewed all pertinent clinical information: Yes Notes (Text): 03/28/18 14:15 Patient seen and examined with resident. Case discussed and agreed with assessment and plan of management.
--- NOTE | 2018-03-28 13:50 | RAD ---
Date of service: 03/28/2018 HISTORY: possible admission COMPARISON: Portable chest 07/19/2017. FINDINGS: LUNGS: Calcified granuloma again noted left lung base. Diminished pulmonary volumes are identified mildly in the interval. No acute airspace disease. PLEURA: No significant pleural effusion identified, no pneumothorax apparent. CARDIOVASCULAR: No aortic atherosclerotic calcification present. Normal cardiac size. No pulmonary vascular congestion. OSSEOUS STRUCTURES: No significant abnormalities. VISUALIZED UPPER ABDOMEN: Normal. OTHER FINDINGS: None. IMPRESSION: No acute infiltrate, pleural effusion or pneumothorax identified. Somewhat diminished pulmonary volumes are identified bilaterally in the interval. No pulmonary vascular congestion.
--- NOTE | 2018-03-28 14:38 | CT ---
Date of service: 03/28/2018 PROCEDURE: CT Abdomen and Pelvis with contrast HISTORY: worsening ascites COMPARISON: 11/24/2017 TECHNIQUE: Contrast dose: 95 mL Omnipaque 300 Radiation dose: Total exam DLP = 786.41 mGy-cm. This CT exam was performed using one or more of the following dose reduction techniques: Automated exposure control, adjustment of the mA and/or kV according to patient size, and/or use of iterative reconstruction technique. FINDINGS: LOWER THORAX: Unremarkable. LIVER: Nodular contour. Innumerable small hypodense nodules throughout the liver. These appear less numerous than on prior CT examination, most likely due to differences in phase of contrast enhancement. Possibly regenerative nodules. Less likely neoplastic. No evidence of biliary obstruction. No intrahepatic biliary dilatation. GALLBLADDER AND BILE DUCTS: Cholelithiasis. No mural thickening. PANCREAS: Unremarkable. No gross lesion or ductal dilatation. SPLEEN: Splenomegaly. The spleen measures 16.3 cm in greatest dimension. No focal mass. ADRENALS: Unremarkable. No mass. KIDNEYS AND URETERS: Unremarkable. No hydronephrosis. No solid mass. VASCULATURE: No evidence of abdominal aortic aneurysm. There are varices in the anterior abdominal wall and recanalization of the umbilical vein. No significant retroperitoneal varices. No aortic atherosclerotic calcification or mural plaque present. BOWEL: Sigmoid diverticulosis. No evidence of diverticulitis. No bowel obstruction. APPENDIX: There is gas and soft tissue density seen within the appendiceal lumen. The appendix is distended up to 9 mm diameter. Please correlate with any clinical concern regarding appendicitis. No periappendiceal inflammatory change is noted. PERITONEUM: Moderate ascites. This is new since the prior CT of 11/24/2017. LYMPH NODES: Unremarkable. No enlarged lymph nodes. BLADDER: Nondistended REPRODUCTIVE: Hysterectomy BONES: No acute fracture. OTHER FINDINGS: None. IMPRESSION: Hepatic cirrhosis. Innumerable small low-density nodules throughout the liver, possibly regenerative nodules. Ascites, new since prior examination. Cholelithiasis. No evidence of cholecystitis. Splenomegaly. Varices. Distended appendix, up to 9 mm diameter. Please correlate with any clinical concern regarding appendicitis. Please note that on prior examination the appendix was also distended with gas alone up to 9 mm diameter.
--- NOTE | 2018-03-28 18:37 | CARD ---
APPROVED REPORT Date of service: 03/28/2018 EKG Measurement Heart [id number] CO [id number] [id number] <Conclusion> Normal sinus rhythm Poor R wave progression in Precordial leads Abnormal ECG
[2018-03-29 06:16] LABS: EOS # 0.1 K/uL (0.0-0.7); EOS % 1.6 % (0.0-4.0); HEMOGLOBIN 9.3 g/dL (12.0-16.0); MEAN CELL VOLUME 97.8 fl (81.0-99.0); MEAN CORPUSCULAR HEMOGLOBIN 31.9 pg (27.0-31.0); MEAN CORPUSCULAR HGB CONC 32.6 g/dL (33.0-37.0); MEAN PLATELET VOLUME 10.8 fl (7.2-11.7); MONO # 0.6 K/uL (0.0-0.8); MONO % 11.6 % (0.0-10.0); NEUT # 3.4 K/uL (1.8-7.0); NEUT % 65.8 % (50.0-75.0); NRBC % 0.1 % (0.0-0.0); RBC 2.91 Mil/uL (3.80-5.20); RED CELL DISTRIBUTION WIDTH 21.5 % (11.5-14.5); WHITE BLOOD COUNT 5.1 K/uL (4.8-10.8)
[2018-03-29 06:36] LABS: ALB/GLOB RATIO 0.6 (1.0-2.1); ALBUMIN 2.2 g/dL (3.5-5.0); ALT/SGPT 46 U/L (9-52); AST/SGOT 116 U/L (14-36); BLOOD UREA NITROGEN 7 mg/dl (7-17); CALCIUM 7.6 mg/dL (8.4-10.2); GFR NON-AFRICAN AMERICAN > 60
[2018-03-29 07:54] VITALS: RESP 20; TEMP 98.1; O2SAT 100
[2018-03-29 11:52] LABS: HEPATITIS B SURFACE AG Negative (NEGATIVE)
[2018-03-29 11:58] LABS: HEPATITIS A IGM NEGATIVE (NEGATIVE); HEPATITIS B CORE AB NEGATIVE (NEGATIVE)
[2018-03-29 12:09] LABS: HEPATITIS C ANTIBODY NEGATIVE (NEGATIVE)
--- NOTE | 2018-03-29 12:38 | CP.PCM.PN ---
<Cecilio Reaves - Last Filed: 03/29/18 13:34> Subjective - Date & Time of Evaluation Date of Evaluation: 03/29/18 Time of Evaluation: 09:40 - Subjective Subjective: Patient seen and evaluated at bedside in AM. No acute events overnight. Patient in NAD, afebrile, alert awake and oriented x 3. Abdomen distended, painless, nontender w/o any nausea, vomiting. Tolerating diet well PO. denies any new complains. Passing stool and voiding well w/o difficulties. Objective - Vital Signs/Intake and Output Vital Signs (last 24 hours): Temp Pulse Resp BP Pulse Ox 98.1 F 70 20 116/75 100 03/29/18 07:53 03/29/18 08:36 03/29/18 07:53 03/29/18 08:45 03/29/18 07:53 - Medications Medications: Current Medications Ferrous Sulfate (Feosol) 325 mg PO DAILY [facility] Last Admin: 03/29/18 08:44 Dose: 325 mg Furosemide (Lasix) 20 mg PO DAILY [facility] Last Admin: 03/29/18 08:45 Dose: 20 mg Lactulose (Enulose) 20 gm PO Q8H [facility] Last Admin: 03/29/18 12:04 Dose: 20 gm Propranolol HCl (Inderal) 10 mg PO TID [facility] Last Admin: 03/29/18 08:36 Dose: 10 mg Spironolactone (Aldactone) 12.5 mg PO DAILY [facility] Last Admin: 03/29/18 08:36 Dose: 12.5 mg - Labs Labs: 03/29/18 05:40 03/29/18 05:40 PT 26.1 Seconds (9.8-13.1) H 03/28/18 11:35 INR 2.3 03/28/18 11:35 APTT 38.8 Seconds (25.6-37.1) H 03/28/18 11:35 - Constitutional Appears: Non-toxic, No Acute Distress - Head Exam Head Exam: ATRAUMATIC, NORMOCEPHALIC - Eye Exam Eye Exam: EOMI, PERRL, Scleral icterus - ENT Exam ENT Exam: Mucous Membranes Moist - Neck Exam Neck Exam: Full ROM - Respiratory Exam Respiratory Exam: Clear to Ausculation Bilateral, NORMAL BREATHING PATTERN. absent: Rales, Rhonchi, Wheezes, Respiratory Distress - Cardiovascular Exam Cardiovascular Exam: REGULAR RHYTHM, +S1, +S2 - GI/Abdominal Exam GI & Abdominal Exam: Distended, Soft, Normal Bowel Sounds, Organomegaly. absent: Rigid, Tenderness - Extremities Exam Extremities Exam: absent: Calf Tenderness, Pedal Edema, Tenderness - Back Exam Back Exam: absent: CVA tenderness (L), CVA tenderness (R) - Neurological Exam Neurological Exam: Alert, Awake, Oriented x3 - Psychiatric Exam Psychiatric exam: Normal Affect, Normal Mood - Skin Skin Exam: Dry, Intact, Normal Color, Warm Assessment and Plan - Assessment and Plan (Free Text) Assessment: 47 y/o F with PMHx of ETOH abuse, alcoholic liver cirrhosis(Last paracentesis in 2016, Removed 11L fluid), esophageal varices, HTN and depression admitted for worsening ascites. Plan: Ascites, likely 2/2 alcoholic cirrhosis - T sebastian improving 5.3 < 6.1, Ammonia 81, Hepatitis panel Negative, VSS - CT abd: Hepatic cirrhosis. Innumerable small low-density nodules throughout the liver, possibly regenerative nodules. Ascites, new since prior examination. Cholelithiasis. No evidence of cholecystitis. Splenomegaly. Varices. Distended appendix, up to 9 mm diameter. - Continue Lasix 20 mg PO daily - Continue Aldactone 12.5 mg PO daily - C/W Propranolol 10 mg PO TID - Start lactulose 20 mg Q8hr - IR recommended against tap due to elevated INR 2.3 - GI, Dr. Whalen consulted: Recs appreciated - Monitor LFTs, Sebastian Jaundice - Likely secondary to cirrhosis, Last T Sebastian 5.3 - GI consult on board - Continue medications as ordered - Monitor LFTs Chronic anemia and thrombocytopenia - Likely secondary to cirrhosis - Plt 75, HgB 9.3 - Monitor CBC Abnormal coagulation profile - PT 26.1, PTT 38.8 - Likely secondary to cirrhosis - Monitor coags HTN - Uncontrolled - Continue home medications including Propranolol and Lasix - Monitor vitals H/O alcohol abuse - Heavy drinker 4 years. - Last Drink 2 months ago Diet - Hepatic diet DVT prophylaxis - SCDs Code Status: Full code <Berkley Norris - Last Filed: 03/29/18 13:44> Objective - Vital Signs/Intake and Output Vital Signs (last 24 hours): Temp Pulse Resp BP Pulse Ox 98.1 F 74 20 114/76 100 03/29/18 07:53 03/29/18 13:38 03/29/18 07:53 03/29/18 13:38 03/29/18 07:53 - Medications Medications: Current Medications Ferrous Sulfate (Feosol) 325 mg PO DAILY [facility] Last Admin: 03/29/18 08:44 Dose: 325 mg Furosemide (Lasix) 20 mg PO DAILY [facility] Last Admin: 03/29/18 08:45 Dose: 20 mg Lactulose (Enulose) 20 gm PO Q8H [facility] Last Admin: 03/29/18 12:04 Dose: 20 gm Propranolol HCl (Inderal) 10 mg PO TID [facility] Last Admin: 03/29/18 13:38 Dose: 10 mg Spironolactone (Aldactone) 12.5 mg PO DAILY [facility] Last Admin: 03/29/18 08:36 Dose: 12.5 mg - Labs Labs: 03/29/18 05:40 03/29/18 05:40 PT 26.1 Seconds (9.8-13.1) H 03/28/18 11:35 INR 2.3 03/28/18 11:35 APTT 38.8 Seconds (25.6-37.1) H 03/28/18 11:35 Attending/Attestation - Attestation I have personally seen and examined this patient.: Yes I have fully participated in the care of the patient.: Yes I have reviewed all pertinent clinical information, including history, physical exam and plan: Yes Notes (Text): 03/29/18 13:44 Seen, examined, and discussed with resident. Agree with findings and plan as above.
[2018-03-29 13:44] VITALS: PULSE 74
--- NOTE | 2018-03-29 14:11 | CP.PCM.DIS ---
<Cecilio Reaves - Last Filed: 03/29/18 15:42> Provider - Provider Date of Admission: 03/28/18 12:31 Attending physician: Brando Meraz MD Consults: 03/29/18 08:05 Gastroenterology Consult Routine Comment: Consulting Provider: Arnulfo Whalen Consulting Physician: Arnulfo Whalen Reason for Consult: Liver cirrhosis, ascitis Time Spent in preparation of Discharge (in minutes): 30 Diagnosis - Discharge Diagnosis (1) Ascites due to alcoholic cirrhosis Status: Acute (2) Jaundice, hepatocellular Status: Acute (3) Hypertension Status: Chronic Hospital Course - Lab Results Lab Results: Most Recent Lab Values WBC 5.1 K/uL (4.8-10.8) 03/29/18 05:40 RBC 2.91 Mil/uL (3.80-5.20) L 03/29/18 05:40 Hgb 9.3 g/dL (12.0-16.0) L 03/29/18 05:40 Hct 28.5 % (34.0-47.0) L 03/29/18 05:40 MCV 97.8 fl (81.0-99.0) D 03/29/18 05:40 MCH 31.9 pg (27.0-31.0) H 03/29/18 05:40 MCHC 32.6 g/dL (33.0-37.0) L 03/29/18 05:40 RDW 21.5 % (11.5-14.5) H 03/29/18 05:40 Plt Count 75 K/uL (130-400) L 03/29/18 05:40 MPV 10.8 fl (7.2-11.7) 03/29/18 05:40 Neut % (Auto) 65.8 % (50.0-75.0) 03/29/18 05:40 Lymph % (Auto) 20.0 % (20.0-40.0) 03/29/18 05:40 [place] % (Auto) 11.6 % (0.0-10.0) H 03/29/18 05:40 Eos % (Auto) 1.6 % (0.0-4.0) 03/29/18 05:40 Baso % (Auto) 1.0 % (0.0-2.0) 03/29/18 05:40 Neut # (Auto) 3.4 K/uL (1.8-7.0) 03/29/18 05:40 Lymph # (Auto) 1.0 K/uL (1.0-4.3) 03/29/18 05:40 [place] # (Auto) 0.6 K/uL (0.0-0.8) 03/29/18 05:40 Eos # (Auto) 0.1 K/uL (0.0-0.7) 03/29/18 05:40 Baso # (Auto) 0.0 K/uL (0.0-0.2) 03/29/18 05:40 PT 26.1 Seconds (9.8-13.1) H 03/28/18 11:35 INR 2.3 03/28/18 11:35 APTT 38.8 Seconds (25.6-37.1) H 03/28/18 11:35 pO2 21 mm/Hg (30-55) L 03/28/18 11:26 VBG pH 7.41 (7.32-7.43) 03/28/18 11:26 VBG pCO2 37 mmHg (40-60) L 03/28/18 11:26 VBG HCO3 22.8 mmol/L 03/28/18 11:26 VBG Total CO2 24.6 mmol/L (22-28) 03/28/18 11:26 VBG O2 Sat (Calc) 31.6 % (40-65) L 03/28/18 11:26 VBG Base Excess -0.9 mmol/L (0.0-2.0) L 03/28/18 11:26 VBG Potassium 6.1 mmol/L (3.6-5.2) H 03/28/18 11:26 Sodium 130.0 mmol/L (132-148) L 03/28/18 11:26 Chloride 103.0 mmol/L (98-107) 03/28/18 11:26 Glucose 89 mg/dL (65-105) 03/28/18 11:26 Lactate 1.5 mmol/L (0.7-2.1) 03/28/18 11:26 FiO2 21.0 % 03/28/18 11:26 Sodium 135 mmol/l (132-148) 03/29/18 05:40 Potassium 3.9 MMOL/L (3.6-5.0) 03/29/18 05:40 Chloride 107 mmol/L (98-107) 03/29/18 05:40 Carbon Dioxide 23 mmol/L (22-30) 03/29/18 05:40 Anion Gap 9 (10-20) L 03/29/18 05:40 BUN 7 mg/dl (7-17) 03/29/18 05:40 Creatinine 0.5 mg/dl (0.7-1.2) L 03/29/18 05:40 Est GFR ( Amer) > 60 03/29/18 05:40 Est GFR (Non-Af Amer) > 60 03/29/18 05:40 Random Glucose 85 mg/dL (65-105) 03/29/18 05:40 Calcium 7.6 mg/dL (8.4-10.2) L 03/29/18 05:40 Phosphorus 4.5 mg/dl (2.5-4.5) 03/29/18 05:40 Magnesium 1.7 MG/DL (1.6-2.3) 03/29/18 05:40 Total Bilirubin 5.3 mg/dl (0.2-1.3) H 03/29/18 05:40 Direct Bilirubin 3.5 mg/ml (0.0-0.4) H 03/28/18 14:56 AST 116 U/L (14-36) H 03/29/18 05:40 ALT 46 U/L (9-52) 03/29/18 05:40 Alkaline Phosphatase 70 U/L (38-126) 03/29/18 05:40 Ammonia 81 umo/L (11-51) H D 03/29/18 07:46 Total Protein 6.2 G/DL (6.3-8.2) L 03/29/18 05:40 Albumin 2.2 g/dL (3.5-5.0) L D 03/29/18 05:40 Globulin 4.0 gm/dL (2.2-3.9) H 03/29/18 05:40 Albumin/Globulin Ratio 0.6 (1.0-2.1) L 03/29/18 05:40 Lipase 283 U/L (23-300) 03/28/18 11:35 Venous Blood Potassium 6.1 mmol/L (3.6-5.2) H 03/28/18 11:26 Urine Color Cecilia (YELLOW) 03/28/18 11:43 Urine Clarity Slighty-cloudy (Clear) 03/28/18 11:43 Urine pH 5.0 (5.0-8.0) 03/28/18 11:43 Ur Specific [place] 1.028 (1.003-1.030) 03/28/18 11:43 Urine Protein 30 mg/dL (NEGATIVE) 03/28/18 11:43 Urine Glucose (UA) Neg mg/dL (NEGATIVE) 03/28/18 11:43 Urine Ketones Negative mg/dL (NEGATIVE) 03/28/18 11:43 Urine Blood Negative (NEGATIVE) 03/28/18 11:43 Urine Nitrate Negative (NEGATIVE) 03/28/18 11:43 Urine Bilirubin Moderate (NEGATIVE) 03/28/18 11:43 Urine Urobilinogen 4.0 mg/dL (0.2-1.0) H 03/28/18 11:43 Ur Leukocyte Esterase Neg Elian/uL (Negative) 03/28/18 11:43 Urine RBC (Auto) 3 /hpf (0-3) 03/28/18 11:43 Urine Microscopic WBC 3 /hpf (0-5) 03/28/18 11:43 Ur Squamous Epith Cells 3 /hpf (0-5) 03/28/18 11:43 Urine Bacteria Rare (<OCC) 03/28/18 11:43 Hepatitis A IgM Ab Negative (NEGATIVE) 03/29/18 08:47 Hep Bs Antigen Negative (NEGATIVE) 03/29/18 08:47 Hep B Core IgM Ab Negative (NEGATIVE) 03/29/18 08:47 Hepatitis C Antibody Negative (NEGATIVE) 03/29/18 08:47 - Hospital Course Hospital Course: 47 y/o F with PMHx of ETOH abuse, alcoholic liver cirrhosis(Last paracentesis in 2016, Removed 11L fluid), esophageal varices, HTN and depression presents to ED with worsening abdominal distention and jaundice. Patient evaluated in ED and admitted for observation. CBC, PT/PTT, CMP, AFP, UA, EKG(Unremarkable), CT abdomen done consistent with ascites and jaundice secondary to alcoholic cirrhosis. Acute hepatitis panel Negative. IR recommended against tap due to elevated INR. GI consulted. Patient remained stable. Medications adjusted as per GI and patient to be discharged home on following medications. Patient advised to follow up with PMD within 1 week and GI on outpatient basis for follow up. Discharge Medications - Aldactone 100 mg PO daily - Lasix 40 mg PO daily - Propranolol 10 mg TID - Ferrous sulfate 325 mg PO daily Discharge Exam - Head Exam Head Exam: ATRAUMATIC, NORMOCEPHALIC - Eye Exam Eye Exam: EOMI, Normal appearance - ENT Exam ENT Exam: Mucous Membranes Moist - Neck Exam Neck exam: Full Rom - Respiratory Exam Respiratory Exam: Clear to PA & Lateral, NORMAL BREATHING PATTERN. absent: Rales, Rhonchi, Wheezes, Respiratory Distress - Cardiovascular Exam Cardiovascular Exam: REGULAR RHYTHM. absent: +S1, +S2 - GI/Abdominal Exam GI & Abdominal Exam: Distended, Normal Bowel Sounds, Soft. absent: Tenderness - Back Exam Back exam: absent: CVA tenderness (L), CVA tenderness (R) - Neurological Exam Neurological exam: Alert, Altered, Normal Gait, Oriented x3 - Psychiatric Exam Psychiatric exam: Normal Affect, Normal Mood - Skin Skin Exam: Dry, Intact, Normal Color, Warm Discharge Plan - Discharge Medications Prescriptions: RX: Furosemide [Lasix] 40 mg PO DAILY #30 tab RX: Lactulose 20 gm PO Q12H 30 Days #30 solution RX: Spironolactone [Aldactone] 100 mg PO DAILY #30 tab - Follow Up Plan Condition: STABLE Disposition: HOME/ ROUTINE Instructions: Fluid in the Belly (Ascites) (DC), Abdominal Paracentesis (DC) Additional Instructions: hacer gabbie con roth primario dentro de 1 semana Referrals: [facility] [Outside] Sheila Ponce MD [Resident] - Arnulfo Whalen MD, PhD [Staff Provider] - <Berkley Norris - Last Filed: 04/01/18 00:35> Provider - Provider Date of Admission: 03/28/18 12:31 Attending physician: Brando Meraz MD Consults: 03/29/18 08:05 Gastroenterology Consult Routine Comment: Consulting Provider: Arnulfo Whalen Consulting Physician: Arnulfo Whalen Reason for Consult: Liver cirrhosis, ascitis Hospital Course - Lab Results Lab Results: Most Recent Lab Values WBC 5.1 K/uL (4.8-10.8) 12/26/18 05:40 RBC 2.91 Mil/uL (3.80-5.20) L 03/29/18 05:40 Hgb 9.3 g/dL (12.0-16.0) L 03/29/18 05:40 Hct 28.5 % (34.0-47.0) L 03/29/18 05:40 MCV 97.8 fl (81.0-99.0) D 03/29/18 05:40 MCH 31.9 pg (27.0-31.0) H 03/29/18 05:40 MCHC 32.6 g/dL (33.0-37.0) L 03/29/18 05:40 RDW 21.5 % (11.5-14.5) H 03/29/18 05:40 Plt Count 75 K/uL (130-400) L 03/29/18 05:40 MPV 10.8 fl (7.2-11.7) 03/29/18 05:40 Neut % (Auto) 65.8 % (50.0-75.0) 03/29/18 05:40 Lymph % (Auto) 20.0 % (20.0-40.0) 03/29/18 05:40 [place] % (Auto) 11.6 % (0.0-10.0) H 03/29/18 05:40 Eos % (Auto) 1.6 % (0.0-4.0) 03/29/18 05:40 Baso % (Auto) 1.0 % (0.0-2.0) 03/29/18 05:40 Neut # (Auto) 3.4 K/uL (1.8-7.0) 03/29/18 05:40 Lymph # (Auto) 1.0 K/uL (1.0-4.3) 03/29/18 05:40 [place] # (Auto) 0.6 K/uL (0.0-0.8) 03/29/18 05:40 Eos # (Auto) 0.1 K/uL (0.0-0.7) 03/29/18 05:40 Baso # (Auto) 0.0 K/uL (0.0-0.2) 03/29/18 05:40 PT 26.1 Seconds (9.8-13.1) H 03/28/18 11:35 INR 2.3 03/28/18 11:35 APTT 38.8 Seconds (25.6-37.1) H 03/28/18 11:35 pO2 21 mm/Hg (30-55) L 03/28/18 11:26 VBG pH 7.41 (7.32-7.43) 03/28/18 11:26 VBG pCO2 37 mmHg (40-60) L 03/28/18 11:26 VBG HCO3 22.8 mmol/L 03/28/18 11:26 VBG Total CO2 24.6 mmol/L (22-28) 03/28/18 11:26 VBG O2 Sat (Calc) 31.6 % (40-65) L 03/28/18 11:26 VBG Base Excess -0.9 mmol/L (0.0-2.0) L 03/28/18 11:26 VBG Potassium 6.1 mmol/L (3.6-5.2) H 03/28/18 11:26 Sodium 130.0 mmol/L (132-148) L 03/28/18 11:26 Chloride 103.0 mmol/L (98-107) 03/28/18 11:26 Glucose 89 mg/dL (65-105) 03/28/18 11:26 Lactate 1.5 mmol/L (0.7-2.1) 03/28/18 11:26 FiO2 21.0 % 03/28/18 11:26 Sodium 135 mmol/l (132-148) 03/29/18 05:40 Potassium 3.9 MMOL/L (3.6-5.0) 03/29/18 05:40 Chloride 107 mmol/L (98-107) 03/29/18 05:40 Carbon Dioxide 23 mmol/L (22-30) 03/29/18 05:40 Anion Gap 9 (10-20) L 03/29/18 05:40 BUN 7 mg/dl (7-17) 03/29/18 05:40 Creatinine 0.5 mg/dl (0.7-1.2) L 03/29/18 05:40 Est GFR ( Amer) > 60 03/29/18 05:40 Est GFR (Non-Af Amer) > 60 03/29/18 05:40 Random Glucose 85 mg/dL (65-105) 03/29/18 05:40 Calcium 7.6 mg/dL (8.4-10.2) L 03/29/18 05:40 Phosphorus 4.5 mg/dl (2.5-4.5) 03/29/18 05:40 Magnesium 1.7 MG/DL (1.6-2.3) 03/29/18 05:40 Total Bilirubin 5.3 mg/dl (0.2-1.3) H 03/29/18 05:40 Direct Bilirubin 3.5 mg/ml (0.0-0.4) H 03/28/18 14:56 AST 116 U/L (14-36) H 03/29/18 05:40 ALT 46 U/L (9-52) 03/29/18 05:40 Alkaline Phosphatase 70 U/L (38-126) 03/29/18 05:40 Ammonia 81 umo/L (11-51) H D 03/29/18 07:46 Total Protein 6.2 G/DL (6.3-8.2) L 03/29/18 05:40 Albumin 2.2 g/dL (3.5-5.0) L D 03/29/18 05:40 Globulin 4.0 gm/dL (2.2-3.9) H 03/29/18 05:40 Albumin/Globulin Ratio 0.6 (1.0-2.1) L 03/29/18 05:40 Lipase 283 U/L (23-300) 03/28/18 11:35 Alpha Fetoprotein 14.7 IU/mL (0.0-7.22) H 03/29/18 15:20 Venous Blood Potassium 6.1 mmol/L (3.6-5.2) H 03/28/18 11:26 Urine Color Cecilia (YELLOW) 03/28/18 11:43 Urine Clarity Slighty-cloudy (Clear) 03/28/18 11:43 Urine pH 5.0 (5.0-8.0) 03/28/18 11:43 Ur Specific [place] 1.028 (1.003-1.030) 03/28/18 11:43 Urine Protein 30 mg/dL (NEGATIVE) 03/28/18 11:43 Urine Glucose (UA) Neg mg/dL (NEGATIVE) 03/28/18 11:43 Urine Ketones Negative mg/dL (NEGATIVE) 03/28/18 11:43 Urine Blood Negative (NEGATIVE) 03/28/18 11:43 Urine Nitrate Negative (NEGATIVE) 03/28/18 11:43 Urine Bilirubin Moderate (NEGATIVE) 03/28/18 11:43 Urine Urobilinogen 4.0 mg/dL (0.2-1.0) H 03/28/18 11:43 Ur Leukocyte Esterase Neg Elian/uL (Negative) 03/28/18 11:43 Urine RBC (Auto) 3 /hpf (0-3) 03/28/18 11:43 Urine Microscopic WBC 3 /hpf (0-5) 03/28/18 11:43 Ur Squamous Epith Cells 3 /hpf (0-5) 03/28/18 11:43 Urine Bacteria Rare (<OCC) 03/28/18 11:43 Hepatitis A IgM Ab Negative (NEGATIVE) 03/29/18 08:47 Hep Bs Antigen Negative (NEGATIVE) 03/29/18 08:47 Hep B Core IgM Ab Negative (NEGATIVE) 03/29/18 08:47 Hepatitis C Antibody Negative (NEGATIVE) 03/29/18 08:47 Attending/Attestation - Attestation I have personally seen and examined this patient.: Yes I have fully participated in the care of the patient.: Yes I have reviewed all pertinent clinical information, including history, physical exam and plan: Yes Notes (Text): 04/01/18 00:35 agree with findings and plan as above
[2018-03-29 15:17] VITALS: BP 1174/76
--- NOTE | 2018-03-30 01:05 | CON ---
DATE: 03/29/2018 REASON FOR CONSULTATION: Ascites. HISTORY OF PRESENT ILLNESS: This is a 48-year-old female with a history of alcohol abuse, cirrhosis, varices, hypertension, depression, comes in for increased abdominal distention. No fever, no chills. No nausea, no vomiting. She is noncompliant with even her followup. Currently, lying in bed comfortably, in no apparent distress. PAST MEDICAL HISTORY: As above. PAST SURGICAL HISTORY: As above. MEDICATIONS: Have been reviewed. REVIEW OF SYSTEMS: All other systems have been reviewed and negative apart from the HPI. PHYSICAL EXAMINATION: VITAL SIGNS: Here in the hospital, grossly unremarkable. GENERAL: This is a pleasant, middle-aged female, lying in bed comfortably, in no apparent distress. HEENT: Head, normocephalic and atraumatic. Eyes, pupils are equally reactive to light bilaterally. There is no conjunctival icterus, no pallor. NECK: Supple. Normal range of motion. No lymphadenopathy appreciated. LUNGS: Coarse breath sounds bilaterally. HEART: S1 and S2. Regular rate and rhythm. No murmurs appreciated. ABDOMEN: Soft, distended. Some fluid wave present. No rebound. No guarding. RECTAL: Deferred. EXTREMITIES: Pulses present bilaterally. SKIN: Warm, dry, and intact. NEUROLOGIC: A and O x3. LABORATORY DATA: Labs and radiology have been reviewed. WBC is 5.1, hemoglobin 9.3, hematocrit 28.2, and INR 2.3. Total raquel is 5.3. AST 137. Lipase is normal. Hepatitis panel negative. ASSESSMENT AND PLAN: This is a 48-year-old female with cirrhosis. CAT scan showed no masses. There are possible regenerative nodules of the liver. Ascites is new since prior. Essentially, regarding the ascites, at this point asymptomatic, we deferred elective with maximized diuretics. DISCHARGE PLAN: She will follow up with the clinic as indicated. Thank you for the consult. Arnulfo Whalen MD/ PhD cc: Berkley Norris DO
== END 2018-03-29 16:10 | disposition home or self-care (01) | DRG 280 ==
LOC: H.ER 10:22 → H.ERHOLD 12:31 → H.MEDSURG1 15:20
DX: K70.31 Alcoholic cirrhosis of liver with ascites (principal); D69.59 Other secondary thrombocytopenia; D63.8 Anemia in other chronic diseases classified elsewhere; R79.1 Abnormal coagulation profile; F10.10 Alcohol abuse, uncomplicated; I10 Essential (primary) hypertension; K29.70 Gastritis, unspecified, without bleeding; Z91.19 Patient's noncompliance with other medical treatment and regimen; J45.909 Unspecified asthma, uncomplicated; F32.9 Major depressive disorder, single episode, unspecified; F41.9 Anxiety disorder, unspecified